=== PATIENT | male | born 1960 | race Caucasian/White ===

== ENCOUNTER 2020-09-10 07:02 | Outpatient (REF) | payer MEDICARE, MEDICAID, SELFPAY ==
[2020-09-10 08:36] LABS: Alanine Aminotransferase 40 U/L (0-40); Albumin Level 4.3 g/dL (3.5-5.0); Alkaline Phosphatase 71 U/L (39-117); Anion Gap 12 (12-20); Aspartate Amino Transferase 20 U/L (5-37); Bilirubin Total 0.6 mg/dL (0.0-1.0); Blood Urea Nitrogen 19 mg/dL (9-16); Calcium 9.2 mg/dL (8.4-10.2); Carbon Dioxide 25 mmol/L (22-29); Chloride 107 mmol/L (96-108); Cholesterol 217 mg/dL; Estimated Glomerular Filt Rate > 60; Glucose Fasting 108 mg/dL (60-99); HDL Cholesterol 38 mg/dL; LDL Cholesterol Calculated 150 mg/dl; Potassium 4.4 mmol/L (3.3-5.1); Sodium 140 mmol/L (135-145); Total Protein 6.6 g/dL (6.5-8.0); Triglycerides 146 mg/dL
== END 2020-09-10 07:03 | disposition home or self-care (01) ==
LOC: HO.LAB 07:02
PROVIDERS: PCP Internal Medicine; Visit Provider Internal Medicine
DX: E78.00 Pure hypercholesterolemia, unspecified (principal)
CPT/HCPCS: 36415; 80053; 80061

== ENCOUNTER 2021-03-02 08:09 | Outpatient (REF) | payer OTHER, SELFPAY ==
--- NOTE | ~2021-03-02 | XR_ITS ---
EXAMINATION: XR PELVIS CLINICAL INFORMATION: Hip pain. COMPARISON: Most recent pelvic radiograph dated 06/11/2019 TECHNIQUE: AP views of the pelvis. FINDINGS: Right hip arthroplasty. No acute hardware or osseous fracture. No perihardware lucency to suggest loosening or infection. Corticated ossification adjacent to the greater tuberosity. No lytic or blastic osseous lesion. XR/XR pelvis 1-2V IMPRESSION: No acute osseous abnormality. Right hip arthroplasty without evidence of complication.
== END 2021-03-02 08:10 | disposition home or self-care (01) ==
LOC: HO.HOSX 08:09
PROVIDERS: Visit Provider Orthopaedic Surgery
DX: M25.551 Pain in right hip (principal); M89.8X9 Other specified disorders of bone, unspecified site; Z96.641 Presence of right artificial hip joint
CPT/HCPCS: 72170; 99212

== ENCOUNTER 2021-05-26 07:09 | Outpatient (REF) | payer OTHER, SELFPAY ==
[2021-05-26 09:03] LABS: Alanine Aminotransferase 38 U/L (0-40); Albumin Level 4.5 g/dL (3.5-5.0); Alkaline Phosphatase 79 U/L (39-117); Anion Gap 7 (12-20); Aspartate Amino Transferase 22 U/L (5-37); Bilirubin Total 0.8 mg/dL (0.0-1.0); Blood Urea Nitrogen 17 mg/dL (9-16); Calcium 9.3 mg/dL (8.4-10.2); Carbon Dioxide 29 mmol/L (22-29); Chloride 108 mmol/L (96-108); Cholesterol 214 mg/dL; Estimated Glomerular Filt Rate > 60; Glucose Fasting 95 mg/dL (60-99); HDL Cholesterol 38 mg/dL; LDL Cholesterol Calculated 146 mg/dl; Potassium 4.3 mmol/L (3.3-5.1); Sodium 140 mmol/L (135-145); Total Protein 6.7 g/dL (6.5-8.0); Triglycerides 152 mg/dL
== END 2021-05-26 07:10 | disposition home or self-care (01) ==
LOC: HO.LAB 07:09
PROVIDERS: Absent Provider Nurse Practitioner Family; PCP Internal Medicine; Visit Provider Internal Medicine
DX: I10 Essential (primary) hypertension (principal); E78.5 Hyperlipidemia, unspecified
CPT/HCPCS: 36415; 80048; 80053; 80061

== ENCOUNTER 2021-06-29 14:39 | Outpatient (REF) | payer OTHER, SELFPAY | END 2021-06-29 14:40 | disposition home or self-care (01) | LOC: HO.LAB 14:39 | PROVIDERS: Visit Provider Internal Medicine | DX: Z20.822 Contact with and (suspected) exposure to COVID-19 (principal) | CPT/HCPCS: 36415; 87635; C9803; U0003; U0005 ==

== ENCOUNTER 2021-11-25 06:45 | Outpatient (REF) | payer OTHER, SELFPAY ==
[2021-11-25 08:19] LABS: Alanine Aminotransferase 40 U/L (0-40); Albumin Level 4.4 g/dL (3.5-5.0); Alkaline Phosphatase 75 U/L (39-117); Anion Gap 12 (12-20); Aspartate Amino Transferase 22 U/L (5-37); Bilirubin Total 0.4 mg/dL (0.0-1.0); Blood Urea Nitrogen 18 mg/dL (9-16); Calcium 9.7 mg/dL (8.4-10.2); Carbon Dioxide 26 mmol/L (22-29); Chloride 107 mmol/L (96-108); Cholesterol 220 mg/dL; Estimated Glomerular Filt Rate > 60; Glucose Fasting 99 mg/dL (60-99); HDL Cholesterol 38 mg/dL; LDL Cholesterol Calculated 142 mg/dl; Potassium 4.6 mmol/L (3.3-5.1); Sodium 140 mmol/L (135-145); Total Protein 6.9 g/dL (6.5-8.0); Triglycerides 200 mg/dL
== END 2021-11-25 06:46 | disposition home or self-care (01) ==
LOC: HO.LAB 06:45
PROVIDERS: PCP Internal Medicine; Visit Provider Internal Medicine
DX: E78.5 Hyperlipidemia, unspecified (principal); I10 Essential (primary) hypertension
CPT/HCPCS: 36415; 80053; 80061

== ENCOUNTER → 2022-02-16 09:14 | Outpatient (BNVA) | payer OTHER, SELFPAY | PROVIDERS: PCP Internal Medicine; Referring Provider Internal Medicine; Visit Provider Internal Medicine | DX: R07.9 Chest pain, unspecified (principal); I10 Essential (primary) hypertension; E78.5 Hyperlipidemia, unspecified | CPT/HCPCS: 93005; 99202 ==

== ENCOUNTER → 2022-04-15 08:29 | Outpatient (REF) | payer OTHER, SELFPAY ==
--- NOTE | 2022-04-15 08:35 | CA_ITS ---
Acquisition Time: 2022-04-15 09:25:33 Total Exercise Time: 00:07:04 Test Indications: Chest Pain Medications: LISINOPRIL ROSUVASTATIN Protocol: EVERETT Max HR: 141 BPM 88% of Pred: 160 BPM Max BP: 176/092 mmHG Max Work Load: 8.6 METS Exercise stress test with exercise 7 min 4 sec of [place], achieving 88% MPHR, without anginal symptoms, with isolated PACs, with normotensive response to exercise, without EKG changes meeting criteria for ischemia. Test reviewed with Dr Magaña. Referred By: Rob Machado Overread By: CHINYERE SCHUSTER
--- NOTE | 2022-04-15 08:35 | CA_ITS ---
Transthoracic Echocardiogram Patient (Last, First, Middle): Tucker San A Gender: Male Date of : 1960 Age: 61 Procedure Date: 04/15/2022 Procedure Type: Transthoracic Echocardiogram Location: OP Height: 167.64 cm Weight: 65.77 kg BSA: 1.74 m2 Heart Rate: 64 bpm BP: 120 / 70 mmHg Foundation Digger: PAYTON Adan MD: Rob Machado MD Foundation Digger: Jasvir Murphy MD Symptoms: R07.9 - Chest pain, unspecified Study Quality: Adequate ECG Rhythm: Sinus Conclusions: - 1. Normal LV systolic function with grade 1 diastolic dysfunction with possible basal inferolateral wall motion abnormality 2. Normal cardiac valvular Doppler 3. Normal RV systolic pressure 4. No gross pericardial effusion Findings Left Ventricle Normal left ventricular size, thickness, and systolic function. The visually estimated ejection fraction is between 60-65%. Spectral Doppler is indicative of an impaired relaxation filling pattern. E/E prime ratio is <8, consistent with normal filling pressures. Evidence suggests grade I (mild) diastolic dysfunction. Wall Motion Rest Echo Findings The basal inferolateral segment is hypokinetic. All other scored wall segments showed normal motion. Right Ventricle Normal right ventricular cavity size and systolic function. Atria Both atria are normal in size. There is no evidence of interatrial shunt. Aortic Valve Normal aortic valve structure and function. There is no aortic valve stenosis. There is no aortic valve regurgitation. Mitral Valve Normal mitral valve structure and function. There is trace mitral valve regurgitation. There is no mitral valve stenosis. Pulmonic Valve The pulmonic valve was not well visualized. Tricuspid Valve Normal tricuspid valve structure. There is trace tricuspid valve regurgitation. The right ventricular systolic pressure is normal. The right ventricular systolic pressure is 17 mmHg. Normal right atrial pressure. There is no evidence of pulmonary hypertension. Great Vessels All visible segments of the aorta are normal in size. The pulmonary artery was not well visualized. Venous The inferior vena cava is normal in size and collapses greater than 50% with inspiration. Pericardium/Pleural There is no evidence of pericardial effusion. Prior Study Comparison No prior study available for comparison. Measurements 2D Linear Measurements IVSd: 1.19 0.6-0.9/0.6-1.0 cm LVIDd: 4.23 3.9-5.3/4.2-5.9 cm LVIDd Index: 2.43 2.4-3.2/2.2-3.1 cm/m2 LVIDs: 3.14 2.0-3.6 cm LVPWd: 0.62 0.7-1.1 cm LA Diam: 3.00 2.7-3.8/3.0-4.0 cm LAIDs Index: 1.72 1.5-2.3 cm/m2 LV Mass: 150.11 67-162/88-224 g LV Mass Index: 86.27 43-95/49-115 g/m2 LVOT Diam: 1.90 3.0+(-)1.3 cm 2D Systolic Function EF 4C: 53.50 >55% EF 2C: 65.60 >55% EF BiP: 60.10 >55% Mitral Valve MV Pk E: 0.89 MV PK A: 0.85 MV Decel Time: 154.00 E/A: 1.00 E'Lateral: 10.90 E'Medial: 8.70 E/E' Med: 10.20 E/E' Lat: 8.10 PHT: 45.00 MVA PHT: 4.89 Decel Blackford: 5.78 Aortic Valve AoV Pk Reuben: 1.20 AoV Mn Reuben: 0.84 AoV VTI: 0.28 AoV Pk Grad: 6.00 Aov Mn Grad: 3.00 GRACIELA Cont.VTI: 1.85 LVOT LVOT Pk Reuben: 0.86 LVOT Mn Reuben: 0.58 LVOT VTI: 0.18 LVOT Pk Grad: 3.00 LVOT Mn Grad: 2.00 LVOT Diam: 1.90 LVOT Area: 2.84 Diastolic Function MV Pk E: 0.89 MV Pk A: 0.85 E/A: 1.00 E'Medial: 8.70 E/E' Med: 10.20 E' Laterial: 10.90 E/E' Lat: 8.10 Right Ventricle TAPSE (mm): 19.50 TVS' Reuben: 10.40 Tricuspid Valve TR Pk Reuben: 1.90 TR Pk Grad: 14.00 RA Press: 3.00 RVSP: 17.00 Great Vessels Aorta Sinus of Valsalva: 3.40 2.0-3.5 cm Ao Asc: 2.90 2.1-3.4 cm Pulmonary Valve PV Pk Reuben: 0.76 Peak PV Grad: 2.00 Updated in Other Vendor System with Status of Final Jasvir Murphy MD electronically signed on 04/16/2022 12:44:45 PM with status of Final
== END ==
LOC: HO.CARD 08:29
PROVIDERS: PCP Internal Medicine; Visit Provider Internal Medicine
DX: R07.9 Chest pain, unspecified (principal)
CPT/HCPCS: 93017; 93306

== ENCOUNTER 2022-04-23 07:50 | Outpatient (REF) | payer OTHER, SELFPAY ==
[2022-04-23 08:56] LABS: Alanine Aminotransferase 36 U/L (0-40); Albumin Level 4.5 g/dL (3.5-5.0); Alkaline Phosphatase 71 U/L (39-117); Anion Gap 13 (12-20); Aspartate Amino Transferase 21 U/L (5-37); Bilirubin Total 0.7 mg/dL (0.0-1.0); Blood Urea Nitrogen 19 mg/dL (9-16); Calcium 9.5 mg/dL (8.4-10.2); Carbon Dioxide 26 mmol/L (22-29); Chloride 106 mmol/L (96-108); Cholesterol 136 mg/dL; Estimated Glomerular Filt Rate > 60; Glucose Fasting 94 mg/dL (60-99); HDL Cholesterol 42 mg/dL; LDL Cholesterol Calculated 76 mg/dl; Potassium 4.7 mmol/L (3.3-5.1); Sodium 140 mmol/L (135-145); Total Protein 6.7 g/dL (6.5-8.0); Triglycerides 94 mg/dL
== END 2022-04-23 07:51 | disposition home or self-care (01) ==
LOC: HO.LAB 07:50
PROVIDERS: PCP Internal Medicine; Visit Provider Internal Medicine
DX: Z00.00 Encounter for general adult medical examination without abnormal findings (principal); E78.5 Hyperlipidemia, unspecified
CPT/HCPCS: 36415; 80053; 80061

== ENCOUNTER → 2022-05-10 07:45 | Outpatient (REF) | payer OTHER, SELFPAY ==
--- NOTE | ~2022-05-10 | NM_ITS ---
Exercise Myocardial perfusion study Indication: Abnormal echo to evaluate for myocardial ischemia Technique: The patient was brought in for an exercise perfusion study on 05/10/2022. Patient performed exercise as per Domenico protocol and was injected 25 mCi of sestamibi was given intravenously one target HR was achieved. Images were obtained using the SPECT gamma camera interlaced with the gating device. Images were obtained in supine position. Resting perfusion study was performed on 05/11/2022. Patient was administered 25 mCi of sestamibi intravenously at rest. Images were then obtained in supine position. Images obtained with and without CT attenuation. Total DLP 77 mGy-cm. Images were processed with the software and compared side to side in short axis, horizontal long axis and vertical long axis views. Findings: Both stress and rest perfusion study images are suboptimal due to intense subdiaphragmatic uptake interfering with inferior wall uptake. The stress perfusion study showed non attenuated images show mildly reduced uptake in the inferoseptal as well as the basal and mid inferior wall of the LV myocardium. Remainder of the LV myocardium is normally perfused. Attenuation corrected images show normal uptake of radiotracer in all segments of LV myocardium.. The gated study shows normal LV systolic function with calculated LVEF of 73%. LV cavity is normal in size. The gated study shows normal systolic wall thickening and contraction of all segments. There is no transient ischemic dilation. Resting study shows nontender images show no significant change in perfusion pattern compared to stress perfusion study. Attenuation corrected images are suboptimal due to intense subdiaphragmatic uptake causing diffusely reduced uptake in multiple segments. Gating at rest reveals normal systolic wall motion with visually estimated ejection fraction at greater than 70%. The findings are consistent with likely normal myocardial perfusion. NM/NM eric perf SPECT rest & str Impression: 1. Normal myocardial perfusion 2. Gated LVEF is greater than 70% 3. Transient ischemic dilatation not present Stress EKG is negative for ischemia
--- NOTE | 2022-05-10 07:56 | CA_ITS ---
Acquisition Time: 2022-05-10 08:04:23 Total Exercise Time: 00:07:15 Test Indications: ABN ECHO Medications: LISINOPRIL ROSUVASTATIN Protocol: EVERETT Max HR: 146 BPM 91% of Pred: 160 BPM Max BP: 162/088 mmHG Max Work Load: 8.9 METS Exercise stress test with exercise 7 min 15 sec achieving 91% MPHR, with mild sob, no chest discomfort, with isolated PACs, with normotensive response to exercise, without EKG changes meeting criteria for ischemia. Nuclear images pending. Test reviewed with Dr Murphy Referred By: Rob Machado Overread By: CHINYERE SCHUSTER
== END ==
LOC: HO.CARD 07:45
PROVIDERS: PCP Internal Medicine; Visit Provider Internal Medicine
DX: R07.2 Precordial pain (principal)
CPT/HCPCS: 78452; 93017; A9500

== ENCOUNTER → 2022-06-08 12:58 | Outpatient (BNVA) | payer OTHER, SELFPAY | PROVIDERS: PCP Internal Medicine; Referring Provider Internal Medicine; Visit Provider Nurse Practitioner Family | DX: R07.9 Chest pain, unspecified (principal); I10 Essential (primary) hypertension; R93.1 Abnormal findings on diagnostic imaging of heart and coronary circulation | CPT/HCPCS: 99212 ==

== ENCOUNTER → 2022-09-28 13:12 | Outpatient (BNVA) | payer OTHER, SELFPAY | PROVIDERS: PCP Internal Medicine; Referring Provider Internal Medicine; Visit Provider Nurse Practitioner Family | DX: R07.9 Chest pain, unspecified (principal); I10 Essential (primary) hypertension; R93.1 Abnormal findings on diagnostic imaging of heart and coronary circulation | CPT/HCPCS: 93005; 99212 ==

== ENCOUNTER 2022-10-13 08:04 | Day surgery (SDC) | payer OTHER, SELFPAY ==
--- NOTE | 2022-10-12 11:52 | HO.ANESPROP2 ---
Documented by User: Laura Farnsworth NP 10/12/22 11:53 HPI - Anesthesia Eval Consult details Narrative: 62yo M for Colonoscopy [facility] Active Problems Active Problems: All Active Problems (Updated 06/08/22 @ 13:14 by Connie Barton NP-C) Abnormal finding on echocardiogram (Acute) Constipation by delayed colonic transit (Acute) Chest pain (Acute) Physical exam (Acute) Hypertension (Acute) Heterotopic ossification of bone (Acute) History of right hip replacement (Acute) Hip pain (Acute) BPH (benign prostatic hyperplasia) (Acute) Impaired glucose tolerance (Acute) Dyslipidemia (Acute) Past Medical History Medical History (Updated 10/12/22 @ 11:53 by Laura Farnsworth NP) BPH (benign prostatic hyperplasia) Chest pain Dyslipidemia Guillain-[place] Hip pain HLD (hyperlipidemia) Hypertension Impaired glucose tolerance Physical exam Family History Family History Father Medical history unknown Skin cancer Prostate cancer Mother Diabetes Hypertension Maternal Grandmother Diabetes Hypertension CVD (cardiovascular disease) Maternal Grandfather Skin cancer Maternal Grandmother Breast cancer Daughter No problems noted. Brother No problems noted. Sister No problems noted. Surgical History Surgical History History of appendectomy History of cystoscopy History of hernia repair History of hip surgery History of laparoscopic cholecystectomy History of right hip replacement Social History Social History Housing: House Alcohol intake: former Patient Tobacco Use Status: Never used Tobacco e-Cigarette/Vaping Use: Never Used Second Hand Smoke Exposure: Yes Use of substances other than those prescribed or required for medical reasons: No Are you DNR?: No Advance Directives: No Advance Directives Information Provided: Yes service: No Current occupational status: retired Cognitive needs: No Hearing needs: No Vision needs: Yes Meds Allergies Allergy/AdvReac Type Severity Reaction Status Date / Time ezetimibe [From Zetia] Allergy Intermediate Abdominal Verified 09/28/22 13:18 pains nut - unspecified Allergy Intermediate Swelling Verified 09/28/22 13:18 oxycodone [From PERCOCET] Allergy Intermediate HYPOTENSION, Verified 09/28/22 13:18 N&V, UNCONSCIOUS Uorrven-VDX-UjR Reductase Allergy Intermediate Increases Verified 09/28/22 13:18 Inhibitor liver [Vtrzyny-Ble-Bit Reductase enzymes Inhibitor] Exam Exam Date and Time: October 12, 2022 1152 Pertinent Lab Results Pertinent Lab Results: Laboratory Tests 04/23/22 07:57 Sodium 140 Potassium 4.7 Chloride 106 Carbon Dioxide 26 BUN 19 H Creatinine 1.07 Assessment and Plan Assessment Anesthesia Assessment: Chart Reviewed Documented by User: Beverly Cobb MD 10/13/22 09:38 PMFSH Past Medical History Medical History (Updated 10/12/22 @ 11:53 by Laura Farnsworth NP) BPH (benign prostatic hyperplasia) Chest pain Dyslipidemia Guillain-[place] Hip pain HLD (hyperlipidemia) Hypertension Impaired glucose tolerance Physical exam Family History Family History Father Medical history unknown Skin cancer Prostate cancer Mother Diabetes Hypertension Maternal Grandmother Diabetes Hypertension CVD (cardiovascular disease) Maternal Grandfather Skin cancer Maternal Grandmother Breast cancer Daughter No problems noted. Brother No problems noted. Sister No problems noted. Family history of problems with anesthesia: No Surgical History Surgical History History of appendectomy History of cystoscopy History of hernia repair History of hip surgery History of laparoscopic cholecystectomy History of right hip replacement History of Problems with Anesthesia: No Social History Social History Housing: House Alcohol intake: former Patient Tobacco Use Status: Never used Tobacco e-Cigarette/Vaping Use: Never Used Second Hand Smoke Exposure: Yes Use of substances other than those prescribed or required for medical reasons: No Are you DNR?: No Advance Directives: No Advance Directives Information Provided: Yes service: No Current occupational status: retired Cognitive needs: No Hearing needs: No Vision needs: Yes Meds Allergies Allergy/AdvReac Type Severity Reaction Status Date / Time ezetimibe [From Zetia] Allergy Intermediate Abdominal Verified 09/28/22 13:18 pains nut - unspecified Allergy Intermediate Swelling Verified 09/28/22 13:18 oxycodone [From PERCOCET] Allergy Intermediate HYPOTENSION, Verified 09/28/22 13:18 N&V, UNCONSCIOUS Hnyvqfd-OJJ-VwP Reductase Allergy Intermediate Increases Verified 09/28/22 13:18 Inhibitor liver [Bilcyfv-Ore-Lvc Reductase enzymes Inhibitor] Exam Airway Mallampati Class: II TM Dist: >3cm Neck ROM: Full Heart: rr Lungs: cta Assessment and Plan Assessment Anesthesia Assessment: Anesthesia Plan Discussed Final Anesthetic Review Family History of Problems with Anesthesia: No History of Problems with Anesthesia: No NPO: Yes ASA Class: II Final Preanesthetic Review: No Changes in Pt Med Stat, Meds/Allgs Chart Reviewed, Consent Obtained/Reviewed and Anes Risks/Benef Reviewed Patient Risk: Low Procedure Risk: Low Anesthetic Plan Anesthetic Plan: MAC: Disposition: Standard PACU
--- OUTSIDE RECORDS SUMMARY | 2022-10-13 08:06 | XMS_ITS ---
Author Name Rj Landon Address [address] [place] [address] Organization [facility] Address [address] [place] [address] Care Team Providers Care Apple Peeler Operator Name Role Phone Rj Landon [facility] [phone] PROBLEMS Type Condition ICD9-CM Code [id number] Code Onset Dates Condition Status SNOMED Code Problem Colon cancer screening Z12.11 Active 236223116 Problem Constipation, unspecified constipation type K59.00 Active [id number] ALLERGIES Substance Reaction Event Type Date Status Percocet Unknown Drug Allergy Sep, Active ENCOUNTERS Encounter Location Date Diagnosis [facility] Outpatient [address] [place] [address] [id number] Sep, [facility] [address] [place] [id number] Aug, [facility] [address] [phone] Aug, Colon cancer screening Z12.11 and Constipation, unspecified constipation type K59.00 [facility] [address] [phone] Jun, IMMUNIZATIONS Vaccine Route Administration Date Status Influenza Unknown Mar 18, 2022 Administered SOCIAL HISTORY Qualifiers Date Never Smoker REASON FOR REFERRAL FUNCTIONAL STATUS PLAN OF CARE Activity Details VITAL SIGNS Weight 145 lbs 2022-09-07 Height 66 in 2022-09-07 BMI 23.40 kg/m2 2022-09-07 Temperature 97.7 degrees Fahrenheit Blood pressure systolic 000 mm Hg Blood pressure diastolic 00 mm Hg 2022-08 MEDICATIONS Medication Instructions Dosage Frequency Start Date End Date Duration Status Dulcolax (colon prep) 5 MG Orally two tablets twice a day for one day take at 3:00 p.m and 7:00p.m. Aug, 1 day Active Metamucil 0.36 GM orally Once or twice a day for constipation 2 with at least 8 ounces of water Aug, 30 days Active Rosuvastatin Calcium 20 MG 90 Active MiraLax 17 GM Orally Once or twice a day for constipation 1 packet mixed with 8 ounces of fluid Aug, 30 day(s) Active Motrin Active Lisinopril 5 MG 90 Active MiraLax (colon prep) 17 GM/SCOOP Orally begin at 5:00 p.m. the day before the procedure 1 238 Gm bottle mixed with Gatorade or Crystal Light Aug, 1 day Active PROCEDURES Procedure Date Ordered Result Body Site BP SCR NOT PRFRM REC REASON NOS Sep 07, 2022 TOBACCO NON-USER Sep 07, 2022 DOC MEDS VERIFIED W/PT OR RE Sep 07, 2022 COLORECTAL CA SCREEN DOC REV Sep 07, 2022 RESULTS No Results REASON FOR VISIT screening, Patiient presents today for a screening colonoscopy, patient presents today for screening colonoscopy, screening colonoscopy, Patient presents today for a COLON SCREENING, New Pt no show, PATIENT PRESENTS TODAY FOR ELEVATED LFT'S Insurance Providers Health Insurance Type Health Plan Insurance Address Health Plan Insurance Phone Health Plan Insurance Name Health Plan Coverage Dates Member ID Patient Relationship to Subscriber Patient Address Patient Phone Patient Name Patient Date of Subscriber ID Subscriber Name Subscriber Date of Group No [employer] [address] [facility] [address] [employer] self YESSICA DAN 2011 [id number] [place] [address] [facility] [address] [place] josh YESSICA DAN [id number] [place] [address] [facility] [address] MEDICAID OF [facility] self YESSICA DAN [id number] MEDICARE OF [facility] [address] [facility] [address] [place] YESSICA DAN [id number]
[2022-10-13 08:25] VITALS: BP 135/97; PULSE 81; RESP 16; TEMP 36.1; O2SAT 100; BMI 23.3
[2022-10-13] MEDS: Lactated Ringers 1,000 ML 100 ML IVCONT (08:53)
--- NOTE | 2022-10-13 09:59 | P.BOP_ITS ---
Brief Operative Note Date of Service: 10/13/22 Pre-op diagnosis: Screening Post-op diagnosis: other (Diverticulosis) Procedure: Colonoscopy to the cecum and TI Surgeon: Rj Landon Anesthesia: MAC Was an Lockstitch Lining Maker used for this Procedure?: No Estimated blood loss (mL): 0 Pathology: none sent Condition: stable Disposition: PACU
[2022-10-13 10:00] VITALS: BP 95/56; PULSE 63; RESP 16; TEMP 36.2; O2SAT 100
[2022-10-13 10:15] VITALS: BP 116/77; PULSE 59; RESP 16; TEMP 36.8; O2SAT 100
--- NOTE | 2022-10-13 11:36 | OP_ITS ---
DATE OF SERVICE: 10/13/2022 SURGEON: Rj Landon MD INDICATIONS: The patient presents for evaluation of colorectal cancer screening. Full consent has been obtained from him for this, including risks of bleeding and perforation. PREOPERATIVE DIAGNOSIS: Colorectal cancer screening. POSTOPERATIVE DIAGNOSIS: PROCEDURE PERFORMED: Colonoscopy to the cecum and terminal ileum. ESTIMATED BLOOD LOSS: COMPLICATIONS: ANESTHESIA: Monitored anesthesia care. ASSISTANTS: SPECIMENS: POSTOPERATIVE DIAGNOSES: Colorectal cancer screening, diverticulosis, and internal hemorrhoids. DESCRIPTION OF PROCEDURE: The patient was placed in the left lateral decubitus position. The digital rectal exam revealed no abnormalities. The Olympus video pediatric colonoscope was entered into the rectum and advanced easily to the cecum. Once in the cecum, I did identify a normal-appearing cecal pouch with appendiceal orifice and a normal-appearing ileocecal valve. The terminal ileum was cannulated and appeared normal. The scope was withdrawn back in the colon. The entire cecum and ileocecal valve appeared normal. The scope was then slowly withdrawn assessing all mucosal surface carefully. Preparation was excellent. I did not visualize any sign of polyps, colitis, nor angiodysplasia. There was a mild amount of sigmoid diverticulosis. In the rectum, scope was retroflexed visualizing internal hemorrhoids but no other pathology. The rectal mucosa appeared normal. Scope was straightened and withdrawn from the patient. He tolerated the procedure well and was returned to the recovery area in stable condition. IMPRESSION: 1. Diverticulosis. 2. Internal hemorrhoids. PLAN: Given today's negative exam, I would recommend a followup colonoscopy in 10 years for further screening. He will otherwise see me on a p.r.n. basis. This has been discussed with his . MD JAYLEEN Mcnair/MARINEL / [id number]
== END 2022-10-13 10:38 | disposition home or self-care (01) ==
PROVIDERS: PCP Internal Medicine; Visit Provider Internal Medicine
PROC: 0DJD8ZZ Inspection of Lower Intestinal Tract, Via Natural or Artificial Opening Endoscopic (ICD-10-PCS; CPT 45378; principal; 2022-10-13 09:20)
DX: Z12.11 Encounter for screening for malignant neoplasm of colon (principal); K57.30 Diverticulosis of large intestine without perforation or abscess without bleeding; K64.8 Other hemorrhoids; K59.00 Constipation, unspecified; I10 Essential (primary) hypertension; E78.00 Pure hypercholesterolemia, unspecified; G61.0 Guillain-Barre syndrome; Z79.1 Long term (current) use of non-steroidal anti-inflammatories (NSAID); Z79.899 Other long term (current) drug therapy; Z88.8 Allergy status to other drugs, medicaments and biological substances; Z90.49 Acquired absence of other specified parts of digestive tract
CPT/HCPCS: G0121

== ENCOUNTER 2022-11-12 10:07 | Outpatient (REF) | payer OTHER, SELFPAY ==
--- NOTE | ~2022-11-12 | XR_ITS ---
EXAMINATION: Pelvis and right hip x-ray CLINICAL INFORMATION: Pain COMPARISON: Previous x-ray February 2021 TECHNIQUE: AP view of the pelvis and shoot through lateral view of the right hip FINDINGS: There is a right hip replacement in satisfactory position. No fracture, dislocation or x-ray evidence of loosening. Heterotopic ossification adjacent to the right greater trochanter. The left hip is normal. Bones of the pelvis are normal. XR/XR pelvis 1-2V IMPRESSION: Satisfactory appearance of right hip replacement.
--- NOTE | ~2022-11-12 | XR_ITS ---
EXAMINATION: Pelvis and right hip x-ray CLINICAL INFORMATION: Pain COMPARISON: Previous x-ray February 2021 TECHNIQUE: AP view of the pelvis and shoot through lateral view of the right hip FINDINGS: There is a right hip replacement in satisfactory position. No fracture, dislocation or x-ray evidence of loosening. Heterotopic ossification adjacent to the right greater trochanter. The left hip is normal. Bones of the pelvis are normal. XR/XR hip RT 1V IMPRESSION: Satisfactory appearance of right hip replacement.
== END 2022-11-12 10:08 | disposition home or self-care (01) ==
LOC: HO.HOSX 10:07
PROVIDERS: Visit Provider Orthopaedic Surgery
DX: M24.051 Loose body in right hip (principal); Z96.641 Presence of right artificial hip joint
CPT/HCPCS: 72170; 73501; 73502; 99212

== ENCOUNTER 2022-12-14 13:20 | Outpatient (REF) | payer OTHER, SELFPAY ==
[2022-12-14 13:56] LABS: INTERNATIONAL NORM RATIO 1.1 (0.9-1.1); Prothrombin Time 12.2 SEC (10.0-13.1)
[2022-12-14 14:06] LABS: Hematocrit 42.4 % (42.0-52.0); Hemoglobin 14.5 g/dl (14.0-18.0); Mean Corpuscular HGB Conc 34.2 g/dl (31.0-36.0); Mean Corpuscular Hemoglobin 28.8 pg (27.0-33.0); Mean Corpuscular Volume 84.3 fL (80.0-98.0); Mean Platelet Volume 10.1 fL (9.4-12.4); Platelet Count 221 X10*3/uL (160-400); Red Blood Count 5.03 X10*6/uL (4.60-5.80); Red Cell Distribution Width 13.8 % (11.0-16.0); White Blood Count 6.4 X10*3/uL (4.8-10.8)
[2022-12-14 14:35] LABS: Alanine Aminotransferase 50 U/L (0-40); Albumin Level 4.1 g/dL (3.5-5.0); Alkaline Phosphatase 61 U/L (39-117); Anion Gap 10 (12-20); Aspartate Amino Transferase 23 U/L (5-37); Bilirubin Total 0.6 mg/dL (0.0-1.0); Blood Urea Nitrogen 19 mg/dL (9-16); Calcium 9.4 mg/dL (8.4-10.2); Carbon Dioxide 29 mmol/L (22-29); Chloride 105 mmol/L (96-108); Estimated Glomerular Filt Rate > 60; Glucose Random 80 mg/dL (60-115); Potassium 4.5 mmol/L (3.3-5.1); Sodium 139 mmol/L (135-145); Total Protein 6.4 g/dL (6.5-8.0)
[2022-12-14 14:53] LABS: TSH reflex Free T4 1.43 uIU/mL (0.32-4.0)
== END 2022-12-14 13:21 | disposition home or self-care (01) ==
LOC: HO.LAB 13:20
PROVIDERS: PCP Internal Medicine; Visit Provider Nurse Practitioner Family
DX: Z01.818 Encounter for other preprocedural examination (principal)
CPT/HCPCS: 36415; 80053; 84443; 85027; 85610

== ENCOUNTER → 2022-12-16 13:47 | Outpatient (BNVA) | payer OTHER, SELFPAY | PROVIDERS: PCP Internal Medicine; Visit Provider Orthopaedic Surgery | DX: Z01.810 Encounter for preprocedural cardiovascular examination (principal); I10 Essential (primary) hypertension; R07.9 Chest pain, unspecified; R93.1 Abnormal findings on diagnostic imaging of heart and coronary circulation | CPT/HCPCS: 93005; 99212 ==

== ENCOUNTER 2022-12-22 09:15 | Day surgery (SDC) | payer OTHER, SELFPAY ==
[2022-12-20 08:12] VITALS: BMI 23.7
--- NOTE | 2022-12-21 09:39 | P.CONAN_ITS ---
Documented by User: Laura Farnsworth NP 12/21/22 09:41 HPI - Anesthesia Eval Consult details Narrative: 62yo M for Right hip removal of Loose Body Cardiac cleared PCP cleared PMFSH Active Problems Active Problems: All Active Problems (Updated 12/16/22 @ 16:49 by Connie Barton, MANAGER MOBILITY-C) Preop cardiovascular exam (Acute) Loose body in right hip (Acute) Abnormal finding on echocardiogram (Acute) Constipation by delayed colonic transit (Acute) Chest pain (Acute) Physical exam (Acute) Heterotopic ossification of bone (Acute) History of right hip replacement (Acute) Hip pain (Acute) BPH (benign prostatic hyperplasia) (Acute) Impaired glucose tolerance (Acute) Dyslipidemia (Acute) Past Medical History Medical History BPH (benign prostatic hyperplasia) Chest pain Dyslipidemia Guillain-[place] Hip pain HLD (hyperlipidemia) Hypertension Impaired glucose tolerance Physical exam Family History Family History Father Medical history unknown Skin cancer Prostate cancer Mother Diabetes Hypertension Maternal Grandmother Diabetes Hypertension CVD (cardiovascular disease) Maternal Grandfather Skin cancer Maternal Grandmother Breast cancer Daughter No problems noted. Brother No problems noted. Sister No problems noted. Family history of problems with anesthesia: No Surgical History Surgical History History of appendectomy History of cystoscopy History of hernia repair History of hip surgery History of laparoscopic cholecystectomy History of right hip replacement History of Problems with Anesthesia: No Social History Social History Housing: House Alcohol intake: former Patient Tobacco Use Status: Never used Tobacco e-Cigarette/Vaping Use: Never Used Second Hand Smoke Exposure: Yes Advance Directives: No Advance Directives Information Provided: Yes service: No Current occupational status: retired Current occupational exposures/hazards: No Cognitive needs: No Hearing needs: No Vision needs: Yes (glasses) Meds Allergies Allergy/AdvReac Type Severity Reaction Status Date / Time ezetimibe [From Zetia] Allergy Intermediate Abdominal Verified 12/16/22 14:56 pains nut - unspecified Allergy Intermediate Swelling Verified 12/16/22 14:56 oxycodone [From PERCOCET] Allergy Intermediate HYPOTENSION, Verified 12/16/22 14:56 N&V, UNCONSCIOUS Jesclog-JWZ-NjN Reductase Allergy Intermediate Increases Verified 12/16/22 14:56 Inhibitor liver [Yqhhtpt-Pjg-Dap Reductase enzymes Inhibitor] Exam Exam Date and Time: December 21, 2022 0939 Height,Weight and Vital Signs: Height 5 ft 6 in Weight 66.678 kg Pertinent Lab Results Pertinent Lab Results: Laboratory Tests 12/14/22 12/14/22 13:31 13:31 WBC 6.4 Hgb 14.5 Hct 42.4 Plt Count 221 Sodium 139 Potassium 4.5 Chloride 105 Carbon Dioxide 29 BUN 19 H Creatinine 1.05 Narrative Narrative: EKG 12/2022 Sinus bradycardia, rate 50, QT 359 ms, no acute ST/ T wave abn. ECHO 03/2022 Conclusions: - 1.? Normal LV systolic function with grade 1 diastolic ? dysfunction with possible basal inferolateral wall motion? abnormality? 2.? Normal cardiac valvular Doppler? 3.? Normal RV systolic pressure? 4.? No gross pericardial effusion? NM eric perf SPECT rest & str 04/2022 Impression: ? 1.? Normal myocardial perfusion 2.? Gated LVEF is greater than 70% 3. Transient ischemic dilatation not present ? Stress EKG is negative for ischemia Assessment and Plan Assessment Anesthesia Assessment: Chart Reviewed Final Anesthetic Review Family History of Problems with Anesthesia: No History of Problems with Anesthesia: No Documented by User: Sophia Decker MD 12/22/22 11:41 HPI - Anesthesia Eval Consult details Narrative: 62yo M for Right hip removal of Loose Body Cardiac cleared PCP cleared no resp invfrom GBS PMFSH Past Medical History Medical History BPH (benign prostatic hyperplasia) Chest pain Dyslipidemia Guillain-[place] Hip pain HLD (hyperlipidemia) Hypertension Impaired glucose tolerance Physical exam Family History Family History Father Medical history unknown Skin cancer Prostate cancer Mother Diabetes Hypertension Maternal Grandmother Diabetes Hypertension CVD (cardiovascular disease) Maternal Grandfather Skin cancer Maternal Grandmother Breast cancer Daughter No problems noted. Brother No problems noted. Sister No problems noted. Surgical History Surgical History History of appendectomy History of cystoscopy History of hernia repair History of hip surgery History of laparoscopic cholecystectomy History of right hip replacement Social History Social History Housing: House Alcohol intake: former Patient Tobacco Use Status: Never used Tobacco e-Cigarette/Vaping Use: Never Used Second Hand Smoke Exposure: Yes Advance Directives: No Advance Directives Information Provided: Yes service: No Current occupational status: retired Current occupational exposures/hazards: No Cognitive needs: No Hearing needs: No Vision needs: Yes (glasses) Meds Allergies Allergy/AdvReac Type Severity Reaction Status Date / Time ezetimibe [From Zetia] Allergy Intermediate Abdominal Verified 12/16/22 14:56 pains nut - unspecified Allergy Intermediate Swelling Verified 12/16/22 14:56 oxycodone [From PERCOCET] Allergy Intermediate HYPOTENSION, Verified 12/16/22 14:56 N&V, UNCONSCIOUS Hejfjvn-RXH-PuE Reductase Allergy Intermediate Increases Verified 12/16/22 14:56 Inhibitor liver [Kyvizlv-Wcq-Zdv Reductase enzymes Inhibitor] Exam Airway Mallampati Class: II TM Dist: >3cm Neck ROM: Full Heart: rrr Lungs: cta Assessment and Plan Assessment Anesthesia Assessment: Anesthesia Plan Discussed Final Anesthetic Review NPO: Yes ASA Class: III Final Preanesthetic Review: No Changes in Pt Med Stat, Meds/Allgs Chart Reviewed, Consent Obtained/Reviewed and Anes Risks/Benef Reviewed Procedure Risk: Intermediate Anesthetic Plan Anesthetic Plan: GA Disposition: Standard PACU
[2022-12-22] VITALS (13 sets, daily range): BP systolic 119–149; BP diastolic 64–92; PULSE 53–69; RESP 16–18; TEMP 36–36.2; O2SAT 98–100
--- OUTSIDE RECORDS SUMMARY | 2022-12-22 09:17 | XMS_ITS ---
Author Name Rj Landon Address [address] [place] [address] Organization [facility] Address [address] [place] [address] Care Team Providers Care Skirt Clipper Name Role Phone Rj Landon [facility] [phone] PROBLEMS Type Condition ICD9-CM Code [id number] Code Onset Dates Condition Status SNOMED Code Problem Constipation, unspecified constipation type K59.00 Active 54223677 Problem Diverticulosis of large intestine without perforation or abscess without bleeding K57.30 Active 469990892 Problem Colon cancer screening Z12.11 Active 920816841 ALLERGIES Substance Reaction Event Type Date Status Percocet Unknown Drug Allergy Sep, Active ENCOUNTERS Encounter Location Date Diagnosis [facility] Outpatient [address] [place] [id number] Sep, Encounter for screening colonoscopy Z12.11 ; Diverticulosis of large intestine without perforation or abscess without bleeding K57.30 and Other hemorrhoids K64.8 [facility] [address] [place] [phone] Aug, [facility] [address] [place] [phone] Aug, Colon cancer screening Z12.11 and Constipation, unspecified constipation type K59.00 [facility] [address] [facility] [address] [place] [phone] Jun, IMMUNIZATIONS Vaccine Route Administration Date Status [...] CA SCREEN DOC REV Sep 07, 2022 DIAGNOSTIC COLONOSCOPY October 13, 2022 RESULTS No Results REASON FOR VISIT [...] Subscriber Name Subscriber Date of Group No [place]ICA[place] [facility] [address] [facility] [address] [facility] [facility] [place] [facility] YESSICA DAN [id number] [place] [address] [facility] [address] [place] self YESSICA DAN [id number] [employer] [address] [facility] [address] [employer] self YESSICA DAN [id number] [place] [address] [facility] [address] [id number] [place] self YESSICA DAN [id number]
[2022-12-22] MEDS: Lactated Ringers 1,000 ML 100 ML IVCONT (09:50)
--- NOTE | 2022-12-22 12:48 | P.BOP_ITS ---
Brief Operative Note Date of Service: 12/22/22 Pre-op diagnosis: painful clicking right hip Post-op diagnosis: same Procedure: Removal of loose body right hip, deep Implants: none Surgeon: Jose Alejandro Maya MD Anesthesia: GETA and local Was an Breeder Service Technician used for this Procedure?: Yes Breeder Service Technician: Rosalinda Hodge Estimated blood loss (mL): 50 IV fluids (mL): 800 Pathology: none sent Condition: stable Disposition: PACU
--- NOTE | 2022-12-22 13:08 | W.PM.OPN ---
Operative Note Operative Note Date of Service: 12/22/22 Narrative: Date of Service: 12/22/22 Pre-op diagnosis: painful clicking right hip Post-op diagnosis: same Procedure: Removal of loose body right hip, deep Implants: none Surgeon: Jose Alejnadro Maya MD Anesthesia: GETA and local Was an Pit Furnace Melter used for this Procedure?: Yes Pit Furnace Melter: Rosalinda Hodge Estimated blood loss (mL): 50 IV fluids (mL): 800 Pathology: none sent Condition: stable Disposition: PACU Procedure in detail: Patient was brought to the operating room and placed in the left lateral decubitus position on the surgical table. He was prepped and draped in standard sterile fashion and a time out was called to identify proper site, proper procedure and IV antibiotics per weight were administered. I began by making a incision through the prior total hip incision using the proximal half of the incision. Dissection was taken down with full-thickness flaps to the tensor fascia. This was incised in line with the incision and the gluteus was spread manually and a Charnley retractor was placed. I internally rotated the hip about 20 degrees and mostlythrough manual palpation was able to palpate a loose piece of bone deep to the gluteus medius tendon. This corresponded to the bone seen on plain radiographs. I palpated the abductor tendon and this did not appear to be adherent to the loose piece of bone so I carefully dissected out this bone t with a combination of periosteal elevation, sharp and blunt dissection and was able to remove a piece of bone approximately 2 cm x 1 cm in total dimension. It was located deep to the abductor tendon at the level of the greater trochanter tip. Once I had removed this bone completely I again reassessed the abductor tendon and it was unaffected although in close proximity. In addition there was no penetration of the joint. I irrigated copiously and then closed the tensor with a running Quill and skin with subcutaneous 0 then 2-0 then yelitza. Local anesthetic was injected and patient was placed in sterile dressing and extubated and brought to the recovery room stable condition. There were no known complications. Patient will be weight-bearing as tolerated but I suspect he will require the use of an assistive device temporarily.
[2022-12-22] MEDS: HYDROmorphone HCl 0.5 MG/0.5 ML SYRINGE 0.25 MG IVPUSH ×3 (13:55→14:21)
[2022-12-22] MEDS: oxyCODONE HCl Immed Release 5 MG TABLET PO (13:55)
== END 2022-12-22 15:50 | disposition home or self-care (01) ==
LOC: HO.SSS 09:15
PROVIDERS: PCP Internal Medicine; Visit Provider Orthopaedic Surgery
PROC: (CPT 27033; principal; 2022-12-22 10:30)
DX: M24.051 Loose body in right hip (principal); M25.551 Pain in right hip; Z96.641 Presence of right artificial hip joint; I10 Essential (primary) hypertension; E78.5 Hyperlipidemia, unspecified; R73.02 Impaired glucose tolerance (oral); G61.0 Guillain-Barre syndrome; Z88.8 Allergy status to other drugs, medicaments and biological substances
CPT/HCPCS: 27033; J0131; J0690; J1100; J1170; J1885; J2405; J2795; J3010

== ENCOUNTER 2022-12-27 12:52 | Outpatient (REF) | payer OTHER, SELFPAY ==
--- NOTE | ~2022-12-27 | XR_ITS ---
EXAMINATION: XR pelvis 1-2V, XR KUB CLINICAL INFORMATION: Reason for Exam M25.559 - Pain in unspecified hip COMPARISON: None. TECHNIQUE: Single AP view the pelvis obtained on 12/27/2022. AP view of the abdomen obtained on 12/30/2022 FINDINGS: No bowel obstruction. Stool present within the ascending colon and left colon. No acute osseous abnormalities. Right total hip arthroplasty. Skin yelitza present laterally. No evidence of hardware failure or complication. No acute osseous abnormalities. XR/XR pelvis 1-2V IMPRESSION: * Mild constipation. * No evidence of hardware failure or complication with respect to the right total hip arthroplasty.
== END 2022-12-27 12:53 | disposition home or self-care (01) ==
LOC: HO.HOSX 12:52
PROVIDERS: PCP Internal Medicine; Visit Provider Physician Assistant
DX: M25.551 Pain in right hip (principal)
CPT/HCPCS: 72170; 99212

== ENCOUNTER 2022-12-29 21:54 | Emergency (ER) | payer OTHER, SELFPAY ==
--- NOTE | ~2022-12-29 | XR_ITS ---
EXAMINATION: XR pelvis 1-2V, XR KUB CLINICAL INFORMATION: Reason for Exam M25.559 - Pain in unspecified hip COMPARISON: None. TECHNIQUE: Single AP view the pelvis obtained on 12/27/2022. AP view of the abdomen obtained on 12/30/2022 FINDINGS: No bowel obstruction. Stool present within the ascending colon and left colon. No acute osseous abnormalities. Right total hip arthroplasty. Skin yelitza present laterally. No evidence of hardware failure or complication. No acute osseous abnormalities. XR/XR KUB IMPRESSION: * Mild constipation. * No evidence of hardware failure or complication with respect to the right total hip arthroplasty.
[2022-12-29 22:09] VITALS: BP 138/93; PULSE 111; RESP 20; TEMP 36.2; O2SAT 100; BMI 23.6
[2022-12-30] VITALS: BP 146/82; PULSE 90; RESP 18; TEMP 37.1; O2SAT 99
--- OUTSIDE RECORDS SUMMARY | 2022-12-30 00:25 | XMS_ITS ---
Author Name Rj Landon Address [address] [place] [address] Organization [facility] Address [address] [place] [address] Care Team Providers Care Binder Chainstitch Name Role Phone Rj Landon [facility] [phone] PROBLEMS Type Condition ICD9-CM Code [id number] Code Onset Dates Condition Status SNOMED Code Problem Constipation, unspecified constipation type K59.00 Active 66014863 Problem Diverticulosis of large intestine without perforation or abscess without bleeding K57.30 Active 251673680 Problem Colon cancer screening Z12.11 Active 917990548 ALLERGIES Substance Reaction Event Type Date Status Percocet Unknown Drug Allergy Sep, Active ENCOUNTERS Encounter Location Date Diagnosis [facility] Out[facility] [address] [place] [id number] Sep, Encounter for screening colonoscopy Z12.11 ; Diverticulosis of large intestine without perforation or abscess without bleeding K57.30 and Other hemorrhoids K64.8 [facility] [address] [place] [phone] Aug, [facility] [address] [place] [phone] Aug, Colon cancer screening Z12.11 and Constipation, unspecified constipation type K59.00 [facility] [address] [facility] [address] [place] [phone] Jun, IMMUNIZATIONS Vaccine Route Administration Date Status [...] Subscriber Name Subscriber Date of Group No [place] [address] [facility] [phone] [place] josh YESSICA DAN [id number] [place] [address] [facility] [address] [place]IC[place] self YESSICA DAN [id number] [place] [address] [facility] [address] [place] YESSICA DAN [id number] [employer] [address] [facility] [address] [employer] self YESSICA DAN [id number]
--- NOTE | 2022-12-30 01:19 | ED_ITS ---
HPI - Abdominal Pain General Chief Complaint: Abdominal Pain Stated Complaint: Abd pain, stool problem? Time Seen by Provider: 12/30/22 01:17 Source: patient Mode of arrival: EMS Limitations: no limitations History of Present Illness HPI narrative: Patient is status post right hip replacement 12/22/2022 with history of constipation been constipated for last 11 days unable to move bowels took stools after only today. No nausea no vomiting feels bloated patient also saying it has not urinated much since yesterday afternoon Related Data Previous Rx's Medication Instructions Recorded docusate sodium 100 mg capsule 100 mg PO BID PRN constipation 90 04/28/22 (Colace) days #180 caps rosuvastatin 20 mg tablet 20 mg PO BEDTIME 90 days #90 tabs 12/02/22 lisinopril 5 mg tablet 5 mg PO DAILY 90 days #90 tabs 12/09/22 acetaminophen 300 mg-codeine 60 mg 1 tab PO Q8H PRN pain #28 tabs 12/23/22 tablet polyethylene glycol 3350 17 17 g PO DAILY #510 grams 12/30/22 gram/dose oral powder (Miralax) Allergies Allergy/AdvReac Type Severity Reaction Status Date / Time ezetimibe [From Zetia] Allergy Intermediate Abdominal Verified 12/27/22 13:26 pains nut - unspecified Allergy Intermediate Swelling Verified 12/27/22 13:26 oxycodone [From PERCOCET] Allergy Intermediate HYPOTENSION, Verified 12/27/22 13:26 N&V, UNCONSCIOUS Aluqtmg-DHM-RvO Reductase Allergy Intermediate Increases Verified 12/27/22 13:26 Inhibitor liver [Treswyz-Svn-Ssl Reductase enzymes Inhibitor] Review of Systems Review of Systems Yes all other systems are reviewed and are negative [facility] Past Medical History Medical History BPH (benign prostatic hyperplasia) Chest pain Dyslipidemia Guillain-[place] Hip pain HLD (hyperlipidemia) Hypertension Impaired glucose tolerance Physical exam Surgical History History of appendectomy History of cystoscopy History of hernia repair History of hip surgery History of laparoscopic cholecystectomy History of right hip replacement Family History Family History Father Medical history unknown Skin cancer Prostate cancer Mother Diabetes Hypertension Maternal Grandmother Diabetes Hypertension CVD (cardiovascular disease) Maternal Grandfather Skin cancer Maternal Grandmother Breast cancer Daughter No problems noted. Brother No problems noted. Sister No problems noted. Social History Social History Housing: House Alcohol intake: never Patient Tobacco Use Status: Never used Tobacco Smoked in Last 30 Days: No e-Cigarette/Vaping Use: Never Used Second Hand Smoke Exposure: Yes Use of substances other than those prescribed or required for medical reasons: No Advance Directives: No Advance Directives Information Provided: Yes service: No Current occupational status: retired Current occupational exposures/hazards: No Cognitive needs: No Hearing needs: No Vision needs: Yes (glasses) Physical Exam ED Vital Signs: Vital Signs - 24 hr 12/29/22 22:09 12/30/22 00:00 12/30/22 02:00 Temperature 97.2 F 98.7 F 98.8 F Pulse Rate 111 H 90 86 Respiratory Rate 20 18 16 Blood Pressure 138/93 H 146/82 H 133/70 Pulse Oximetry 100 99 100 Oxygen Delivery Method Room Air Room Air Room Air BMI result Body Mass Index 23.6 Appearance: Alert. Oriented X3. No acute distress. Eyes: PERRLA, No Nystagmus ENT: Pharynx normal. Oral Mucosa moist Neck: Normal inspection. Neck supple. CVS: Normal heart rate and rhythm. Pulses normal. Respiratory: No respiratory distress. Equal air entry bilateral, no wheezing/rales/rhonchi Abdomen: Soft and nontender. Bowel sounds are present, no mass palpable, no CVA tenderness rectal; semi hard stool ++ Skin: Skin warm and dry. Normal skin color. Normal skin turgor. Extremities: No lower extremity edema. No calf tenderness right hip status post surgery Neuro: Oriented X 3. Medical Decision Making Medical Decision Making MDM Narrative: After manual disimpaction and Fleet enema patient had a good bowel movement and feeling much better labs are stable discharge patient home on MiraLax Lab Data [facility] Lab Attestation statement: I reviewed the patient's lab results. 12/30/22 02:39 12/30/22 02:39 Labs: Lab Results 12/30/22 12/30/22 12/30/22 Range/Units 02:39 02:39 02:39 WBC 9.5 (4.8-10.8) X10*3/uL RBC 4.94 (4.60-5.80) X10*6/uL Hgb 13.8 L (14.0-18.0) g/dl Hct 41.0 L (42.0-52.0) % MCV 83.0 (80.0-98.0) fL MCH 27.9 (27.0-33.0) pg MCHC 33.7 (31.0-36.0) g/dl RDW 13.2 (11.0-16.0) % Plt Count 222 (160-400) X10*3/uL MPV 9.2 L (9.4-12.4) fL Immature Gran % (Auto) 0.3 (0.0-0.4) % Neut % (Auto) 88.5 H (45-73) % Lymph % (Auto) 5.8 L (20-40) % [place] % (Auto) 5.3 (2-11) % Eos % (Auto) 0.0 (0-4) % Baso % (Auto) 0.1 (0-2) % Lymph # (Auto) 0.6 L (1.2-4.9) X10*3/uL [place] # (Auto) 0.5 (0.1-1.2) X10*3/uL Eos # (Auto) 0.0 (0.0-0.4) X10*3/uL Baso # (Auto) 0.0 (0.0-0.2) X10*3/uL Abs Immat Gran (auto) 0.03 (0.00-0.03) X10*3/uL Absolute Neuts (auto) 8.4 H (2.0-8.3) x10*3/uL Absolute Nucleated RBC 0.000 (0.0-0.012) X10*3/uL Nucleated RBC % (auto) 0.0 (0.0-0.2) /100WBC Sodium 140 (135-145) mmol/L Potassium 4.2 (3.3-5.1) mmol/L Chloride 104 (96-108) mmol/L Carbon Dioxide 24 (22-29) mmol/L Anion Gap 16 (12-20) BUN 17 H (9-16) mg/dL Creatinine 0.98 (0.5-1.4) mg/dL Estim Creat Clear Calc 71.4 Estimated GFR > 60 Random Glucose 129 H (60-115) mg/dL Calcium 9.5 (8.4-10.2) mg/dL Urine Color Yellow Urine Appearance Clear Urine pH 7.5 (5.0-9.0) Ur Specific [place] 1.020 (1.005-1.025) Urine Protein Trace (Neg-Trace) mg/dL Urine Glucose (UA) Negative (Negative) mg/dL Urine Ketones Trace (Negative) mg/dL Urine Blood Negative (Negative) Urine Nitrite Negative (Negative) Ur Leukocyte Esterase Trace H (Negative) Urine RBC 0-2 (0-2) /HPF Urine WBC 0-5 (0-5) /HPF Ur Squamous Epith Cells 0-2 (0-2) /HPF Urine Bacteria None Seen (None Seen) Hyaline Casts 0-2 (0-2) /LPF Medications Administered Discontinued Medications Generic Name Dose Route Start Last Admin Trade Name Sachinq PRN Reason Stop Dose Admin Bisacodyl 10 mg 12/30/22 02:09 12/30/22 02:46 Bisacodyl 5 Mg Tablet.Dr PO 12/30/22 02:10 10 mg ONCE ONE Administration Sodium Chloride 1,000 mls @ 999 mls/hr 12/30/22 02:08 12/30/22 02:46 Ns IV 12/30/22 03:08 999 mls/hr .Q1H1M ONE Administration Lidocaine HCl 10 ml 12/30/22 01:58 12/30/22 02:03 Lidocaine Hcl 2 % Urojet 10 Ml Jel.Pf.Aclvin TOPICAL 12/30/22 01:59 10 ml ONCE ONE Administration Magnesium Hydroxide 30 ml 12/30/22 02:09 12/30/22 02:46 Milk Of Magnesia 30 Ml Oral.Susp PO 12/30/22 02:10 30 ml ONCE ONE Administration Morphine Sulfate 4 mg 12/30/22 03:00 12/30/22 03:27 Morphine Sulfate 4 Mg/Ml Cartridge IVPUSH 12/30/22 03:01 4 mg ONCE ONE Administration Protocol Ondansetron HCl 4 mg 12/30/22 03:00 12/30/22 03:27 Ondansetron Hcl 4 Mg/2 Ml Vial IVPUSH 12/30/22 03:01 4 mg ONCE ONE Administration Sodium Biphosphate/Sodium Phosphate 133 ml 12/30/22 02:34 12/30/22 02:46 Sodium Phosphate,[place]-Dibasic 133 Ml Enema [place] 12/30/22 02:35 133 ml ONCE ONE Administration Discharge Plan Discharge Clinical Impression: Constipation Patient Disposition: Home, Self-Care Instructions: Constipation (ED) Additional Instructions: Take MiraLax and Colace daily for constipation Follow-up with PCP if any concerns [place] MiraLax y Colace diariamente para el estre?imiento Seguimiento con PCP si hay alguna inquietud Prescriptions: New polyethylene glycol 3350 [Miralax] 17 gram/dose powder 17 g PO DAILY Qty: 510 0RF No Action rosuvastatin 20 mg tablet 20 mg PO BEDTIME 90 Days Qty: 90 1RF lisinopril 5 mg tablet 5 mg PO DAILY 90 Days Qty: 90 1RF acetaminophen-codeine 300-60 mg tablet 1 tab PO Q8H PRN (Reason: pain) Qty: 28 0RF docusate sodium [Colace] 100 mg capsule 100 mg PO BID PRN (Reason: constipation) 90 Days Qty: 180 1RF Interventions: ED Discharge Assessment Last Done: 12/30/22 04:33 Discharge Date/Time: 12/30/22 04:33 Print Language: Kazakh
[2022-12-30 02:00] VITALS: BP 133/70; PULSE 86; RESP 16; TEMP 37.1; O2SAT 100
[2022-12-30] MEDS: Lidocaine HCl 2 % Urojet 10 ML JEL.PF.APP TOPICAL (02:03)
[2022-12-30 02:46] LABS: Basophils Percent Auto 0.1 % (0-2); Hemoglobin 13.8 g/dl (14.0-18.0); Imm Gran Abs Auto 0.03 X10*3/uL (0.00-0.03); Imm Gran Pct Auto 0.3 % (0.0-0.4); Lymphocytes Absolute Auto 0.6 X10*3/uL (1.2-4.9); Lymphocytes Percent Auto 5.8 % (20-40); MANUAL DIFF FLAG NO; Mean Corpuscular HGB Conc 33.7 g/dl (31.0-36.0); Mean Corpuscular Hemoglobin 27.9 pg (27.0-33.0); Mean Platelet Volume 9.2 fL (9.4-12.4); Monocytes Absolute Auto 0.5 X10*3/uL (0.1-1.2); Monocytes Percent Auto 5.3 % (2-11); Neutrophils Absolute Auto 8.4 x10*3/uL (2.0-8.3); Neutrophils Percent Auto 88.5 % (45-73); Platelet Count 222 X10*3/uL (160-400); Red Blood Count 4.94 X10*6/uL (4.60-5.80); Red Cell Distribution Width 13.2 % (11.0-16.0); White Blood Count 9.5 X10*3/uL (4.8-10.8)
[2022-12-30] MEDS: 0.9 % Sodium Chloride 1,000 ML 999 ML IV (02:46)
[2022-12-30] MEDS: Milk of Magnesia 30 ML ORAL.SUSP PO (02:46)
[2022-12-30] MEDS: Sodium Phosphate,Mono-Dibasic 133 ML ENEMA PR (02:46)
[2022-12-30] MEDS: bisacodyL 5 MG TABLET.DR 10 MG PO (02:46)
[2022-12-30 02:47] LABS: Appearance Urine Clear; Color Urine Yellow; Glucose Urine UA Negative (Negative); Leukocyte Esterase Urine Trace (Negative); Nitrite Urine Negative (Negative); PH 7.5 (5.0-9.0); UMIC TRIGGER UACC YES; Urine Blood Negative (Negative); Urine Ketones Trace mg/dL (Negative); Urine Protein Trace mg/dL (Neg-Trace)
[2022-12-30 02:53] LABS: Bacteria Urine None Seen (None Seen); Hyaline Casts Urine 0-2 /LPF (0-2); RBC Urine 0-2 /HPF (0-2); Squamous Epithelial Cell Urine 0-2 /HPF (0-2); WBC Urine 0-5 /HPF (0-5)
--- NOTE | 2022-12-30 02:54 | PC.NURSE ---
18g IV inserted into the left AC with fluids running. Line is patent and secure. Pt was given a saline enema with increased pain upon insertion. Pt medicated per MAR
[2022-12-30 03:00] LABS: Anion Gap 16 (12-20); Blood Urea Nitrogen 17 mg/dL (9-16); Calcium 9.5 mg/dL (8.4-10.2); Carbon Dioxide 24 mmol/L (22-29); Chloride 104 mmol/L (96-108); Creatinine Clr Calc Pharmacy 71.4; Estimated Glomerular Filt Rate > 60; Glucose Random 129 mg/dL (60-115); Potassium 4.2 mmol/L (3.3-5.1); Sodium 140 mmol/L (135-145)
[2022-12-30] MEDS: ondansetron HCL 4 MG/2 ML VIAL IVPUSH (03:27)
[2022-12-30] MEDS: Morphine Sulfate 4 MG/ML CARTRIDGE IVPUSH (03:27)
--- NOTE | 2022-12-30 03:43 | PC.NURSE ---
Pt had a bowel movement after the enema. Stated it was very compacted. Pt still reporting 8/10 pain. Morphine given per SEP.
== END 2022-12-30 04:33 | disposition home or self-care (01) ==
PROVIDERS: Emergency Provider Internal Medicine
DX: K59.00 Constipation, unspecified (principal); Z79.899 Other long term (current) drug therapy
CPT/HCPCS: 36415; 74018; 80048; 81001; 85025; 96374; 96375; 99284; 99285; J2270; J2405

== ENCOUNTER → 2023-01-03 14:00 | Outpatient (BNVA) | payer OTHER, SELFPAY | PROVIDERS: Visit Provider Physician Assistant | DX: Z47.89 Encounter for other orthopedic aftercare (principal); Z87.39 Personal history of other diseases of the musculoskeletal system and connective tissue | CPT/HCPCS: 99212 ==

== ENCOUNTER 2023-01-31 11:40 | Outpatient (REF) | payer OTHER, SELFPAY ==
--- NOTE | ~2023-01-31 | XR_ITS ---
EXAMINATION: XR PELVIS CLINICAL INFORMATION: Pain COMPARISON: 12/30/2022 TECHNIQUE: AP view of the pelvis. FINDINGS: Right hip arthroplasty changes appear intact. There is no evidence for hardware failure. Mild heterotopic ossification adjacent to the greater trochanter. Left hip normal. XR/XR pelvis 1-2V IMPRESSION: No evidence for hardware failure. No acute findings.
== END 2023-01-31 11:41 | disposition home or self-care (01) ==
LOC: HO.HOSX 11:40
PROVIDERS: Visit Provider Physician Assistant
DX: M24.051 Loose body in right hip (principal)
CPT/HCPCS: 72170

== ENCOUNTER 2023-01-31 12:44 | Outpatient (AMB) | payer OTHER, SELFPAY ==
--- NOTE | 2023-01-31 12:55 | A.OFFVIS_ITS ---
Intake Vital Signs 01/31/23 12:57 Height 5 ft 6 in Weight 146 lb BMI 23.6 Intake Visit Reasons: PO RT hip removal of loose body 12/22/22NE Intake Note: Tucker is a 62 year old male who presents today for a post operative right hip removal of loose body, 12/22/22 NE. Patient reports having some soreness and he states it is so much better than before. Allergies ezetimibe [From Zetia] Allergy (Intermediate, Verified 01/31/23 12:57) Abdominal pains nut - unspecified Allergy (Intermediate, Verified 01/31/23 12:57) Swelling oxycodone [From PERCOCET] Allergy (Intermediate, Verified 01/31/23 12:57) HYPOTENSION, N&V, UNCONSCIOUS Mqhnrex-MNJ-QjL Reductase Inhibitor [Svuvznt-Fwx-Flj Reductase Inhibitor] Aller gy (Intermediate, Verified 01/31/23 12:57) Increases liver enzymes HPI PO RT hip removal of loose body 12/22/22NE HPI Details 62-year-old male, who is Indian speaking, presents in the office today 5 weeks status post right hip deep removal of loose body, which was performed on 12/22/[address] Maya. He states he has some soreness from the surgery. He states he has no pain. He reports he is feeling better then before the surgery. [facility] Medical History BPH (benign prostatic hyperplasia) Chest pain Dyslipidemia Guillain-[place] Hip pain HLD (hyperlipidemia) Hypertension Impaired glucose tolerance Physical exam Surgical History History of appendectomy History of cystoscopy History of hernia repair History of hip surgery History of laparoscopic cholecystectomy History of right hip replacement Family History Father Medical history unknown Skin cancer Prostate cancer Mother Diabetes Hypertension Maternal Grandmother Diabetes Hypertension CVD (cardiovascular disease) Maternal Grandfather Skin cancer Maternal Grandmother Breast cancer Daughter No problems noted. Brother No problems noted. Sister No problems noted. Social History Housing: House Alcohol intake: never Patient Tobacco Use Status: Never used Tobacco e-Cigarette/Vaping Use: Never Used Second Hand Smoke Exposure: Yes service: No Current occupational status: retired Current occupational exposures/hazards: No Cognitive needs: No Hearing needs: No Vision needs: Yes (glasses) Review of Systems Const All systems reviewed & are unremarkable except as noted in HPI and below Physical Exam Vital Signs: BMI result Body Mass Index 23.6 Const General: cooperative and no acute distress Orientation/consciousness: patient oriented x3 Resp Effort & Inspection: normal respiratory effort and able to speak in complete sentences Cardio Peripheral pulses: Peripheral pulses 2+ throughout Neuro General: patient oriented x3 Extrem Other: Right hip: Incision site is completely healed. No ecchymosis, erythema, or edema. Full hip ROM in all planes. No tenderness to palpation over the greater trochanteric bursa. 5/5 strength with resisted hip flexion, knee extension, abduction, and abduction. Able to perform straight leg raise. NVI. Psych Mental Status: mental status grossly normal Assessment & Plan Assessment & Plan (1) Loose body in right hip: Comment: Right hip deep removal of loose body 12/22/2022 NE Code(s): M24.051 - Loose body in right hip Plan Mr. Ferrer is a 62-year-old male, who is Indian speaking, presents in the office today 5 weeks status post right hip deep removal of loose body, which was performed on 12/22/[address] Maya. He states he has some soreness from the surgery. He states he has no pain. He reports he is feeling better then before the surgery. The patient will return to normal activities as tolerated. Follow up will be PRN, or sooner if needed. Orders: Orders XR pelvis 1-2V 01/31/23 M25.559 - Pain in unspecified hip Patient Instructions: Scribed for Rosalinda Hodge PA-C by Rekha Chen medical asst, on 01/31/2023 at 12:53 pm, EST. Your attestation Coding Level of Care Code Global (66325) Diagnoses Loose body in right hip M24.051
[2023-01-31 12:57] VITALS: BMI 23.6
== END 2023-01-31 14:10 | disposition home or self-care (01) ==
PROVIDERS: Visit Provider Physician Assistant
DX: M24.051 Loose body in right hip (principal)
CPT/HCPCS: 99024

== ENCOUNTER 2023-04-07 07:43 | Outpatient (AMB) | payer OTHER, MEDICAID, SELFPAY ==
--- NOTE | 2023-04-07 07:47 | MHC.PC.OV ---
Vital Signs 04/07/23 07:55 Height 5 ft 6 in Weight 145 lb 6 oz BMI 23.5 BP 136/82 Blood Pressure Location Lt brachial Position Sitting Pulse 65 Pulse Source Pulse Oximeter Pulse Oximetry (%) 100 Oxygen Delivery Method Room Air Intake Visit Reasons: Annual PE Intake Note: Patient here for an annual physical exam Director Of Staff Development Required: No Accompanied by: Self / Same As Patient Allergies ezetimibe [From Zetia] Allergy (Intermediate, Verified 04/07/23 07:59) Abdominal pains nut - unspecified Allergy (Intermediate, Verified 04/07/23 07:59) Swelling oxycodone [From PERCOCET] Allergy (Intermediate, Verified 04/07/23 07:59) HYPOTENSION, N&V, UNCONSCIOUS Hbgtrgs-UJE-UnX Reductase Inhibitor [Iinmqiw-Chp-Hjx Reductase Inhibitor] Allergy (Intermediate, Verified 04/07/23 07:59) Increases liver enzymes Medication List - Last Reconciled 04/07/23 by Enedina Lorenz MD docusate sodium (Colace) 100 mg PO BID PRN 90 days lisinopril 5 mg PO DAILY 90 days polyethylene glycol 3350 (Miralax) 17 grams PO DAILY rosuvastatin 20 mg PO BEDTIME 90 days Tobacco use date assessed: 12/14/22 Dental Screening Dental Screen Date: 04/07/23 Did you have a dental visit in the last 12 months?: No Did you have a dental problem in the last 6 months where you did not have access to dental care?: No Was dental information given to patient?: Patient has dentist HPI HPI Comments History of Present Illness Details This is a 62-year-old male that comes for his physical exam. Last colonoscopy was November 2022 showing internal hemorrhoids and diverticulosis. No chest pain or shortness of breath. Has family history of colon cancer in paternal on-call at unknown age. No change in bowel or bladder habits. [facility] Medical History Guillain-[place] HLD (hyperlipidemia) Chest pain Physical exam Hypertension Hip pain BPH (benign prostatic hyperplasia) Impaired glucose tolerance Dyslipidemia Surgical History (Updated 04/07/23 @ 08:09 by Enedina Lorenz MD) H/O colonoscopy History of hernia repair History of right hip replacement History of cystoscopy History of hip surgery History of appendectomy History of laparoscopic cholecystectomy Family History Father Skin cancer Prostate cancer Mother Diabetes Hypertension Breast cancer Maternal Grandmother Diabetes Hypertension CVD (cardiovascular disease) Maternal Grandfather Skin cancer Maternal Grandmother Breast cancer Daughter No problems noted. Brother No problems noted. Sister No problems noted. Maternal Uncle Diabetes Pancreatic cancer Maternal Uncle Prostate cancer Paternal Uncle Colon cancer Paternal Uncle Prostate cancer Paternal Uncle Skin cancer Social History Housing: House Alcohol intake: never Patient Tobacco Use Status: Never used Tobacco e-Cigarette/Vaping Use: Never Used Second Hand Smoke Exposure: Yes service: No Current occupational status: retired Current occupational exposures/hazards: No Cognitive needs: No Hearing needs: No Vision needs: Yes (glasses) Questionnaire Thrive Questionnaire Date Thrive assessed: 12/14/22 REYNALDO-7 AMB Questionnaire REYNALDO-7 Date REYNALDO - 7 assessed: 12/14/22 Source: Developed by Drs. Rj Keen, Nubia Gallegos, Robert Reyna and colleagues, with an educational thuy from [employer]. Review of Systems Const All systems reviewed & are unremarkable except as noted in HPI and below Eyes Reports no additional complaints, Denies change in vision and Denies other visual disturbances Card Denies chest pain at rest, Denies chest pain with activity, Denies edema, Denies irregular heart rhythm, Denies claudication, Denies dyspnea, Denies dyspnea on exertion, Denies orthopnea, Denies paroxysmal nocturnal dyspnea and Denies slow heart rate Resp Denies cough, Denies dyspnea and Denies dyspnea on exertion GI Denies abdominal pain, Denies change in bowel habits, Denies excessive flatus, Denies nausea and Denies vomiting Denies urinary hesitancy, Denies urinary incontinence and Denies urinary urgency Musc Denies abnormal gait, Denies atrophy, Denies deformity and Denies limited range of motion Skin/Breast Denies bleeding lesions, Denies changing lesions and Denies rash Neuro Denies abnormal gait and Denies lack of coordination Physical exam (Primary Care) Vital Signs: Last Vital Signs Pulse 65 04/07/23 07:55 BP 136/82 04/07/23 07:55 Pulse Ox 100 04/07/23 07:55 Oxygen Delivery Method Room Air 04/07/23 07:55 BMI result Body Mass Index 23.5 Tobacco/Smoking Status: Tobacco use Status Tobacco use date assessed 12/14/22 04/07/23 07:48 Patient Tobacco Use Status Never used Tobacco 04/07/23 07:48 e-Cigarette/Vaping Use Never Used 04/07/23 07:48 Thrive Assessment: Date of Thrive Assessment Date Thrive assessed 12/14/22 04/07/23 07:48 Const Orientation/consciousness: patient oriented x3 HENMT Head: Yes normal to inspection, Yes normocephalic and Yes atraumatic Ears: external ears normal Eyes General: appearance normal, both eyes and all related structures Eyelids: Yes eyelids normal Conjunctivae: conjunctivae normal Neck Neck: Yes normal visual inspection and Yes supple Resp Effort & Inspection: normal respiratory effort Auscultation: clear to auscultation bilaterally Cardio Jugular venous distension: no JVD Rate: regular rate Rhythm: regular rhythm Heart sounds: S1 normal heart sound present and S2 normal heart sound present GI Inspection: Yes normal to inspection Palpation (GI): Soft to palpation and nontender Auscultation: normal bowel sounds Skin General skin exam: no rashes or lesions noted Neuro General: patient oriented x3 and no focal motor deficits Extrem General: Yes full ROM Psych Appearance: grossly normal Assessment and Plan Assessment & Plan (1) Physical exam: Code(s): Z00.00 - Encounter for general adult medical examination without abnormal findings Plan: Repeat in a year Orders: Orders PSA,Total (Free>4and<10) 6 Months Z12.5 - Encounter for screening for malignant neoplasm of prostate Comprehensive [place]. Panel Fast 6 Months Z00.00 - Encounter for general adult medical examination without abnormal findings Lipid Panel 6 Months E78.5 - Hyperlipidemia, unspecified Medications: New rosuvastatin 10 mg PO DAILY 90 days 90 tabs 1RF E78.5 - Hyperlipidemia, unspecified Discontinued rosuvastatin Discontinued Reason: Patient Completed Course 20 mg PO BEDTIME 90 days 90 tabs 1RF E78.5 - Hyperlipidemia, unspecified Coding Level of Care Code Est Pt Prev Care 40-64y(32072) Diagnoses Physical exam Z00.00 Time Spent (min) 33
[2023-04-07 07:55] VITALS: BP 136/82; PULSE 65; O2SAT 100; BMI 23.5
== END 2023-04-07 08:22 | disposition home or self-care (01) ==
PROVIDERS: Visit Provider Internal Medicine
DX: Z00.00 Encounter for general adult medical examination without abnormal findings (principal)
CPT/HCPCS: 99396

== ENCOUNTER 2023-10-06 07:40 | Outpatient (AMB) | payer OTHER, SELFPAY ==
[2023-10-06 07:56] VITALS: BP 130/80; BMI 23.4
--- NOTE | 2023-10-06 07:56 | MHC.PC.OV ---
Vital Signs 10/06/23 07:56 Height 5 ft 6 in Weight 145 lb BMI 23.4 BP 130/80 Blood Pressure Location Lt brachial Position Sitting Intake Visit Reasons: lipids Intake Note: Patient here for a follow up lipids Multimedia Manager Required: No Accompanied by: Self / Same As Patient Allergies ezetimibe [From Zetia] Allergy (Intermediate, Verified 10/06/23 08:04) Abdominal pains nut - unspecified Allergy (Intermediate, Verified 10/06/23 08:04) Swelling oxycodone [From PERCOCET] Allergy (Intermediate, Verified 10/06/23 08:04) HYPOTENSION, N&V, UNCONSCIOUS Oovvoca-RND-ZpR Reductase Inhibitor [Xtkpwiz-Iye-Rqc Reductase Inhibitor] Allergy (Intermediate, Verified 10/06/23 08:04) Increases liver enzymes Medication List - Last Reconciled 10/06/23 by Enedina Lorenz MD lisinopril 5 mg PO DAILY 90 days polyethylene glycol 3350 (Miralax) 17 grams PO DAILY rosuvastatin 10 mg PO DAILY 90 days Tobacco use date assessed: 10/06/23 Dental Screening Dental Screen Date: 10/06/23 Did you have a dental visit in the last 12 months?: Yes Did you have a dental problem in the last 6 months where you did not have access to dental care?: No Was dental information given to patient?: Patient has dentist HPI HPI Comments History of Present Illness Details This is a 63-year-old male that comes for his physical exam. Colonoscopy done 2022 showing internal hemorrhoids only. Next colonoscopy should be 2032 but he wants it earlier due to positive family history of colon cancer. No chest pain or shortness of breath. PFSH Medical History Guillain-[place] HLD (hyperlipidemia) Chest pain Physical exam Hypertension Hip pain BPH (benign prostatic hyperplasia) Impaired glucose tolerance Dyslipidemia Surgical History H/O colonoscopy History of hernia repair History of right hip replacement History of cystoscopy History of hip surgery History of appendectomy History of laparoscopic cholecystectomy Family History Father Skin cancer Prostate cancer Mother Diabetes Hypertension Breast cancer Maternal Grandmother Diabetes Hypertension CVD (cardiovascular disease) Maternal Grandfather Skin cancer Maternal Grandmother Breast cancer Daughter No problems noted. Brother No problems noted. Sister No problems noted. Maternal Uncle Diabetes Pancreatic cancer Maternal Uncle Prostate cancer Paternal Uncle Colon cancer Paternal Uncle Prostate cancer Paternal Uncle Skin cancer Social History Housing: House Alcohol intake: never Patient Tobacco Use Status: Never used Tobacco e-Cigarette/Vaping Use: Never Used Second Hand Smoke Exposure: Yes service: No Current occupational status: retired Current occupational exposures/hazards: No Cognitive needs: No Hearing needs: No Vision needs: Yes (glasses) Questionnaire PHQ-9 Over the last 2 weeks, how often have you been bothered by any of the following problems? 1. Little interest or pleasure in doing things: not at all 2. Feeling down, depressed, or hopeless: not at all 3. Trouble falling or staying asleep, or sleeping too much: not at all 4. Feeling tired or having little energy: not at all 5. Poor appetite or overeating: not at all 6. Feeling bad about yourself - or that you are a failure or have let yourself or your family down: not at all 7. Trouble concentrating on things, such as reading the newspaper or watching television: not at all 8. Moving or speaking so slowly that other people could have noticed. Or the opposite - being so fidgety or restless that you have been moving around a lot more than usual: not at all 9. Thoughts that you would be better off or of hurting yourself in some way: not at all Total score: 0 Depression Screening Interpretation: Negative Depression Screening Done: Yes 05681 - PHQ-9 Billing: Yes Source: Developed by Drs. Rj Keen, Nubia Gallegos, Robert Reyna and colleagues, with an educational thuy from [employer]. Thrive Questionnaire Date Thrive assessed: 10/06/23 I am a: Patient What is your living situation today?: I have a steady place to live Within the past 12 months, did the food you bought not last and you didn't have the money to get more?: Never true Within the past 12 months, did you worry whether your food would run out before you got money to buy more?: Never true Do you have trouble paying for medicines?: No Do you have trouble getting transportation to medical appointments?: No Do you have trouble paying your heating and electricity bill?: No Do you have trouble taking care of your child, family member or friend?: No Do you have trouble with day-to-day activities such as bathing, preparing meals, shopping, managing finances, etc.?: No Are you currently unemployed and looking for a job?: No Are you interested in more education?: No Please select the resources that you would like help with: None Currently or been in a relationship where the following occur: no concerns reported THRIVE Score: 0 AUDIT C Alcohol Use Questionnaire (AUDIT-C) 1. How often do you have a drink containing alcohol?: Never Total Score: 0 REYNALDO-7 AMB Questionnaire REYNALDO-7 Date REYNALDO - 7 assessed: 10/06/23 Feeling nervous, anxious, or on edge: 1 = Several days Not being able to stop or control worryin = Not at all Worrying too much about different things: 1 = Several days Trouble relaxin = Not at all Being so restless that it is hard to sit still: 0 = Not at all Becoming easily annoyed or irritable: 0 = Not at all Feeling afraid as if something awful might happen: 0 = Not at all Total REYNALDO-7 score (0-4 normal; 5-9 mild; 10-14 moderate; 15-21 severe): 2 Source: Developed by Drs. Rj Keen, Nubia Gallegos, Robert Reyna and colleagues, with an educational thuy from [employer]. REYNALDO-7 Assessment Billing REYNALDO-7 Assessment Tool: REYNALDO-7 Assessment 53025 Review of Systems Const All systems reviewed & are unremarkable except as noted in HPI and below Eyes Reports no additional complaints, Denies change in vision and Denies other visual disturbances Card Denies chest pain at rest, Denies chest pain with activity, Denies edema, Denies irregular heart rhythm, Denies claudication, Denies dyspnea, Denies dyspnea on exertion, Denies orthopnea, Denies paroxysmal nocturnal dyspnea and Denies slow heart rate Resp Denies cough, Denies dyspnea and Denies dyspnea on exertion GI Denies abdominal pain, Denies change in bowel habits, Denies excessive flatus, Denies nausea and Denies vomiting Denies urinary hesitancy, Denies urinary incontinence and Denies urinary urgency Musc Denies atrophy, Denies deformity and Denies limited range of motion Physical exam (Primary Care) Vital Signs: Last Vital Signs BP 130/80 10/06/23 07:56 BMI result Body Mass Index 23.4 Tobacco/Smoking Status: Tobacco use Status Tobacco use date assessed 10/06/23 10/06/23 08:02 Patient Tobacco Use Status Never used Tobacco 10/06/23 08:02 e-Cigarette/Vaping Use Never Used 10/06/23 08:02 PHQ-9: PHQ-9 Score PHQ-9: Total score 0 10/06/23 08:02 Depression Screening Interpretation: Negative Thrive Assessment: Date of Thrive Assessment Date Thrive assessed 10/06/23 10/06/23 08:02 Currently or been in a relationship where the following occur: no concerns reported Const Orientation/consciousness: patient oriented x3 HENMT Head: Yes normal to inspection, Yes normocephalic and Yes atraumatic Ears: external ears normal Eyes General: appearance normal, both eyes and all related structures Eyelids: Yes eyelids normal Conjunctivae: conjunctivae normal Neck Neck: Yes normal visual inspection and Yes supple Resp Effort & Inspection: normal respiratory effort Auscultation: clear to auscultation bilaterally Cardio Jugular venous distension: no JVD Rate: regular rate Rhythm: regular rhythm Heart sounds: S1 normal heart sound present and S2 normal heart sound present GI Inspection: Yes normal to inspection Palpation (GI): Soft to palpation and nontender Auscultation: normal bowel sounds Skin General skin exam: no rashes or lesions noted Neuro General: patient oriented x3 and no focal motor deficits Extrem General: Yes full ROM Psych Appearance: grossly normal Assessment and Plan Assessment & Plan (1) Physical exam: Code(s): Z00.00 - Encounter for general adult medical examination without abnormal findings Plan: Repeat in a year. Coding Level of Care Code Est Pt Prev Care 40-64y(36154) Diagnoses Physical exam Z00.00 Additional Codes REYNALDO-7 Assessment Billing - REYNALDO-7 Assessment Tool: REYNALDO-7 Assessment 09330 ([id number]) Time Spent (min) 32
== END 2023-10-06 08:17 | disposition home or self-care (01) ==
PROVIDERS: Visit Provider Internal Medicine
DX: Z00.00 Encounter for general adult medical examination without abnormal findings (principal)
CPT/HCPCS: 99396

== ENCOUNTER 2023-10-07 06:45 | Outpatient (REF) | payer OTHER, SELFPAY ==
[2023-10-07 08:48] LABS: Alanine Aminotransferase 44 U/L (0-40); Albumin Level 4.2 g/dL (3.5-5.0); Alkaline Phosphatase 69 U/L (39-117); Anion Gap 10 (12-20); Aspartate Amino Transferase 21 U/L (5-37); Bilirubin Total 0.5 mg/dL (0.0-1.0); Blood Urea Nitrogen 16 mg/dL (9-16); Calcium 8.9 mg/dL (8.4-10.2); Carbon Dioxide 26 mmol/L (22-29); Chloride 108 mmol/L (96-108); Cholesterol 180 mg/dL (<200); Estimated Glomerular Filt Rate > 60; Glucose Fasting 86 mg/dL (60-99); HDL Cholesterol 36 mg/dL (>40); LDL Cholesterol Calculated 110 mg/dL (<100); Potassium 4.2 mmol/L (3.3-5.1); Sodium 140 mmol/L (135-145); Total Protein 6.6 g/dL (6.5-8.0); Triglycerides 172 mg/dL (<150)
[2023-10-07 08:55] LABS: PSA,Total (Free>4and<10) 3.68 ng/mL (0.00-4.00)
== END 2023-10-07 06:46 | disposition home or self-care (01) ==
LOC: HO.LAB 06:45
PROVIDERS: PCP Internal Medicine; Visit Provider Internal Medicine
DX: Z00.00 Encounter for general adult medical examination without abnormal findings (principal); E78.5 Hyperlipidemia, unspecified; Z12.5 Encounter for screening for malignant neoplasm of prostate
CPT/HCPCS: 36415; 80053; 80061; 84153

== ENCOUNTER 2024-05-08 09:32 | Outpatient (REF) | payer OTHER, SELFPAY | END 2024-05-08 09:33 | disposition home or self-care (01) | LOC: HO.HOSX 09:32 | PROVIDERS: Visit Provider Physician Assistant | DX: Z13.89 Encounter for screening for other disorder (principal) ==

== ENCOUNTER 2024-05-30 12:23 | Outpatient (AMB) | payer OTHER, SELFPAY ==
--- NOTE | 2024-05-30 12:34 | MHC.PC.OV ---
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 Required: No Accompanied by: Self / Same As Patient Allergies ezetimibe [From Zetia] Allergy (Intermediate, Verified 05/30/24 12:51) Abdominal pains nut - unspecified Allergy (Intermediate, Verified 05/30/24 12:51) Swelling oxycodone [From PERCOCET] Allergy (Intermediate, Verified 05/30/24 12:51) HYPOTENSION, N&V, UNCONSCIOUS Rpcvzcj-OAV-UcU Reductase Inhibitor [Nfkphsp-Vai-Ebu Reductase Inhibitor] Allergy (Intermediate, Verified 05/30/24 12:51) Increases liver enzymes Medication List - Last Reconciled 05/30/24 by Enedina Lorenz MD ibuprofen 800 mg PO Q8H PRN 30 days lisinopril 5 mg PO DAILY 90 days polyethylene glycol 3350 (Miralax) 17 grams PO DAILY rosuvastatin 10 mg PO DAILY 90 days Tobacco use date assessed: 10/06/23 Dental Screening Dental Screen Date: 10/06/23 HPI HPI Comments History of Present Illness Details This is a 63-year-old male that comes for his physical exam. Colonoscopy done 2022 was normal and next colonoscopy should be 2032. He complains of a skin lesion and has family history of skin cancer in first-degree relative and would like to be refer again to Dermatology. He also had an episode of syncope in which he lost consciousness while in the shower. No witnesses. This happened a month ago. No bowel or bladder incontinence. He denies any palpitations or any other symptom before syncope. He also has right elbow pain and an x-ray will be ordered. 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[place] HLD (hyperlipidemia) Chest pain Physical exam Hypertension Hip pain BPH (benign prostatic hyperplasia) Impaired glucose tolerance Dyslipidemia Surgical History (Updated 05/30/24 @ 12:55 by Enedina Lorenz MD) H/O colonoscopy History of hernia repair History of right hip replacement History of cystoscopy History of hip surgery History of appendectomy History of laparoscopic cholecystectomy Family History Father Skin cancer Prostate cancer Mother Diabetes Hypertension Breast cancer Maternal Grandmother Diabetes Hypertension CVD (cardiovascular disease) Maternal Grandfather Skin cancer Maternal Grandmother Breast cancer Daughter No problems noted. Brother No problems noted. Sister No problems noted. Maternal Uncle Diabetes Pancreatic cancer Maternal Uncle Prostate cancer Paternal Uncle Colon cancer Paternal Uncle Prostate cancer Paternal Uncle Skin cancer Social History Housing: House Alcohol intake: never Patient Tobacco Use Status: Never used Tobacco e-Cigarette/Vaping Use: Never Used Second Hand Smoke Exposure: Yes service: No Current occupational status: retired Current occupational exposures/hazards: No Cognitive needs: No Hearing needs: No Vision needs: Yes (glasses) Questionnaire PHQ-9 Over the last 2 weeks, how often have you been bothered by any of the following problems? 1. Little interest or pleasure in doing things: several days 2. Feeling down, depressed, or hopeless: not at all 3. Trouble falling or staying asleep, or sleeping too much: not at all 4. Feeling tired or having little energy: not at all 5. Poor appetite or overeating: several days 6. Feeling bad about yourself - or that you are a failure or have let yourself or your family down: not at all 7. Trouble concentrating on things, such as reading the newspaper or watching television: not at all 8. Moving or speaking so slowly that other people could have noticed. Or the opposite - being so fidgety or restless that you have been moving around a lot more than usual: not at all 9. Thoughts that you would be better off or of hurting yourself in some way: not at all Total score: 2 Depression Screening Interpretation: Positive Depression Screening Follow-up: Existing condition and Follow-up Visit Requested Depression Screening Done: Yes 35969 - PHQ-9 Billing: Yes Source: Developed by Drs. Rj Keen, Nubia Gallegos, Robert Reyna and colleagues, with an educational thuy from [employer]. Thrive Questionnaire Date Thrive assessed: 05/30/24 I am a: Patient What is your living situation today?: I have a steady place to live THRIVE Score: 0 REYNALDO-7 AMB Questionnaire REYNALDO-7 Date REYNALDO - 7 assessed: 10/06/23 Source: Developed by Drs. Rj Keen, Nubia Gallegos, Robert Reyna and colleagues, with an educational thuy from [employer]. REYNALDO-7 Assessment Billing REYNALDO-7 Assessment Tool: REYNALDO-7 Assessment 93631 Review of Systems Const All systems reviewed & are unremarkable except as noted in HPI and below Card Denies chest pain at rest, Denies chest pain with activity, Denies edema, Denies irregular heart rhythm, Denies claudication, Denies dyspnea, Denies dyspnea on exertion, Denies orthopnea, Denies paroxysmal nocturnal dyspnea and Denies slow heart rate Resp Denies cough, Denies dyspnea and Denies dyspnea on exertion Denies urinary hesitancy, Denies urinary incontinence and Denies urinary urgency Musc Denies abnormal gait, Denies atrophy, Denies deformity and Denies limited range of motion Skin/Breast Denies bleeding lesions, Denies changing lesions and Denies rash Neuro Denies abnormal gait, Denies behavioral changes and Denies lack of coordination Psych Denies behavioral changes Physical exam (Primary Care) Vital Signs: Last Vital Signs BP 118/80 05/30/24 12:35 BMI result Body Mass Index 23.7 Tobacco/Smoking Status: Tobacco use Status Tobacco use date assessed 10/06/23 05/30/24 12:36 Patient Tobacco Use Status Never used Tobacco 05/30/24 12:36 e-Cigarette/Vaping Use Never Used 05/30/24 12:36 PHQ-9: PHQ-9 Score PHQ-9: Total score 2 05/30/24 12:56 Depression Screening Interpretation: Positive Depression Screening Follow-up: Existing condition and Follow-up Visit Requested Thrive Assessment: Date of Thrive Assessment Date Thrive assessed 05/30/24 05/30/24 12:36 HENMT Head: Yes normal to inspection, Yes normocephalic and Yes atraumatic Ears: external ears normal Eyes General: appearance normal, both eyes and all related structures Eyelids: Yes eyelids normal Conjunctivae: conjunctivae normal Neck Neck: Yes normal visual inspection and Yes supple Resp Effort & Inspection: normal respiratory effort Auscultation: clear to auscultation bilaterally Cardio Jugular venous distension: no JVD Rate: regular rate Rhythm: regular rhythm Heart sounds: S1 normal heart sound present and S2 normal heart sound present GI Inspection: Yes normal to inspection Palpation (GI): Soft to palpation and nontender Auscultation: normal bowel sounds Skin General skin exam: no rashes or lesions noted Neuro General: no focal motor deficits Extrem General: Yes full ROM Psych Appearance: grossly normal Office Procedures Flu Questionnaire Does the patient have a severe egg allergy?: No Does the patient have severe life threatening allergies?: No Does the patient have a fever or illness today?: No 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 Has the patient ever had any past reaction to a flu shot?: No Immunizations Fluarix Triv [id number] (PF) 45 mcg (15 mcg x 3)/0.5 mL IM syringe Performing Provider: Enedina Lorenz MD [facility] Administered by: NOMAN Osorio on 05/30/24 13:09 Dose Route Admin Location Dispensed Lot Number Expiration Date [facility] [place] 0.5 mL IM Right Deltoid 0.5 mL [id number] 01/14/25 [id number] [employer] VIS Given Date VIS Provided VIS Publication Date 05/30/24 Single Vaccine 21 Eligibility Eligibility Date Funding Source Not [facility] Eligible 05/30/24 Private Coding Level of Care Code Est Pt Level 3 (11153) Est Pt Prev Care 40-64y(82541) Diagnoses Physical exam Z00.00 Syncope, unspecified syncope type R55 Syncope type: unspecified Right elbow pain M25.521 Skin lesion L98.9 Additional Codes REYNALDO-7 Assessment Billing - REYNALDO-7 Assessment Tool: REYNALDO-7 Assessment 52500 ([id number]) PHQ-9 - 46112 - PHQ-9 Billing: Yes ([id number]) Time Spent (min) 33 Assessment & Plan Assessment & Plan (1) Physical exam: Code(s): Z00.00 - Encounter for general adult medical examination without abnormal findings Category: Medical Plan: Repeat in a year. (2) Syncope: Code(s): R55 - Syncope and collapse Category: Medical Qualifiers: Syncope type: unspecified Qualified Code(s): R55 - Syncope and collapse Plan: Echocardiogram ordered. CT of the head ordered. EKG ordered. (3) Right elbow pain: Code(s): M25.521 - Pain in right elbow Category: Medical Plan: X-ray ordered. (4) Skin lesion: Code(s): L98.9 - Disorder of the skin and subcutaneous tissue, unspecified Category: Medical Plan: Referred to Dermatology. Orders: Orders CT head/brain wo IV con Today R55 - Syncope and collapse ECG 12 lead EKG Today R55 - Syncope and collapse Influenza [id number] Immunization Today Z23 - Encounter for immunization Lipid Panel Today E78.5 - Hyperlipidemia, unspecified Comprehensive [place]. Panel Fast Today Z00.00 - Encounter for general adult medical examination without abnormal findings CA echo transthoracic complete Today R55 - Syncope and collapse XR elbow RT 2V Today M25.521 - Pain in right elbow Referrals Dermatology Referral L98.9 - Disorder of the skin and subcutaneous tissue, unspecified Medications: Refilled lisinopril 5 mg PO DAILY 90 days 90 tabs 1RF I10 - Essential (primary) hypertension
[2024-05-30 12:35] VITALS: BP 118/80; BMI 23.7
== END 2024-05-30 13:10 | disposition home or self-care (01) ==
PROVIDERS: PCP Internal Medicine; Visit Provider Internal Medicine
DX: Z00.00 Encounter for general adult medical examination without abnormal findings (principal); R55 Syncope and collapse; M25.521 Pain in right elbow; L98.9 Disorder of the skin and subcutaneous tissue, unspecified

== ENCOUNTER → 2024-05-30 12:23 | Outpatient (BNVA) | payer OTHER, SELFPAY | PROVIDERS: PCP Internal Medicine; Visit Provider Internal Medicine | DX: Z00.01 Encounter for general adult medical examination with abnormal findings (principal); Z23 Encounter for immunization; R55 Syncope and collapse; M25.521 Pain in right elbow; L98.9 Disorder of the skin and subcutaneous tissue, unspecified | CPT/HCPCS: 90471; 90656; 96127; 99212; 99396 ==

== ENCOUNTER 2024-06-01 06:57 | Outpatient (REF) | payer OTHER, SELFPAY ==
[2024-06-01 07:55] LABS: Alanine Aminotransferase 36 U/L (0-40); Albumin Level 4.1 g/dL (3.5-5.0); Alkaline Phosphatase 64 U/L (39-117); Anion Gap 8 (12-20); Aspartate Amino Transferase 28 U/L (5-37); Bilirubin Total 0.7 mg/dL (0.0-1.0); Blood Urea Nitrogen 19 mg/dL (9-16); Calcium 8.8 mg/dL (8.4-10.2); Carbon Dioxide 26 mmol/L (22-29); Chloride 108 mmol/L (96-108); Cholesterol 206 mg/dL (<200); Estimated Glomerular Filt Rate > 60; Glucose Fasting 106 mg/dL (60-99); HDL Cholesterol 39 mg/dL (>40); LDL Cholesterol Calculated 142 mg/dL (<100); Potassium 4.3 mmol/L (3.3-5.1); Sodium 138 mmol/L (135-145); Total Protein 6.5 g/dL (6.5-8.0); Triglycerides 125 mg/dL (<150)
== END 2024-06-01 06:58 | disposition home or self-care (01) ==
LOC: HO.LAB 06:57
PROVIDERS: PCP Internal Medicine; Visit Provider Internal Medicine
DX: Z00.00 Encounter for general adult medical examination without abnormal findings (principal); E78.5 Hyperlipidemia, unspecified
CPT/HCPCS: 36415; 80053; 80061

== ENCOUNTER → 2024-06-20 08:00 | Outpatient (REF) | payer OTHER, SELFPAY ==
--- NOTE | 2024-06-20 08:21 | CA_ITS ---
Transthoracic Echocardiogram Patient (Last, First, Middle): Tucker Ferrer A Gender: Male Date of : 1960 Age: 63 Procedure Date: 06/20/2024 Procedure Type: Transthoracic Echocardiogram Location: OP Height: 165.1 cm Weight: 66.68 kg BSA: 1.74 m2 Heart Rate: 52 bpm BP: 118 / 78 mmHg Residency Coordinator: SB Referring MD: Enedina Lorenz MD Document Examiner: Jasvir Murphy MD Symptoms: R55 - Syncope and collapse Study Quality: Adequate ECG Rhythm: Bradycardia Conclusions: - Essentially normal study Findings Left Ventricle Normal left ventricular size, thickness, and systolic function. The visually estimated ejection fraction is between 55-60%. Spectral Doppler is indicative of a normal filling pattern. Right Ventricle Normal right ventricular cavity size and systolic function. Atria Both atria are normal in size. There is a mobile atrial septum noted. There is no evidence of interatrial shunt. Aortic Valve Normal aortic valve structure and function. There is no aortic valve stenosis. There is no aortic valve regurgitation. Mitral Valve Normal mitral valve structure and function. There is no mitral valve regurgitation. There is no mitral valve stenosis. Pulmonic Valve The pulmonic valve is likely normal. There is trace pulmonic valve regurgitation. Tricuspid Valve Normal tricuspid valve structure. There is trace tricuspid valve regurgitation. The right ventricular systolic pressure is normal. The right ventricular systolic pressure is 25 mmHg. Normal right atrial pressure. There is no evidence of pulmonary hypertension. Great Vessels All visible segments of the aorta are normal in size. The pulmonary artery was not well visualized. There is no dilatation of the ascending aorta measuring 2.80 cm. Venous The inferior vena cava is normal in size and collapses greater than 50% with inspiration. Pericardium/Pleural There is no evidence of pericardial effusion. Prior Study Comparison Changes noted compared to prior study dated: 04/15/2022. There is no clear wall motion abnormality of the inferoseptal wall. Measurements 2D Linear Measurements IVSd: 0.82 0.6-0.9/0.6-1.0 cm LVIDd: 4.42 3.9-5.3/4.2-5.9 cm LVIDd Index: 2.54 2.4-3.2/2.2-3.1 cm/m2 LVIDs: 2.85 2.0-3.6 cm LVPWd: 0.57 0.7-1.1 cm LV Mass: 114.06 67-162/88-224 g LV Mass Index: 65.55 43-95/49-115 g/m2 LVOT Diam: 2.00 3.0+(-)1.3 cm 2D Systolic Function EF 4C: 50.30 >55% EF 2C: 66.10 >55% EF BiP: 59.30 >55% Mitral Valve MV Pk E: 0.84 MV PK A: 0.71 MV Decel Time: 200.00 E/A: 1.20 E'Lateral: 10.70 E'Medial: 6.96 E/E' Med: 12.10 E/E' Lat: 7.90 PHT: 59.00 MVA PHT: 3.73 Decel [place]: 4.22 Aortic Valve AoV Pk Reuben: 1.13 AoV Pk Grad: 5.00 GRACIELA: 2.38 LVOT LVOT Pk Reuben: 0.86 LVOT Mn Reuben: 0.58 LVOT VTI: 0.18 LVOT Pk Grad: 3.00 LVOT Mn Grad: 2.00 LVOT Diam: 2.00 LVOT Area: 3.14 Diastolic Function MV Pk E: 0.84 MV Pk A: 0.71 E/A: 1.20 E'Medial: 6.96 E/E' Med: 12.10 E' Laterial: 10.70 E/E' Lat: 7.90 Right Ventricle TAPSE (mm): 15.10 TVS' Reuben: 10.00 Tricuspid Valve TR Pk Reuben: 2.32 TR Pk Grad: 22.00 RA Press: 3.00 RVSP: 25.00 Great Vessels Aorta Sinus of Valsalva: 2.90 2.0-3.5 cm Ao Asc: 2.80 2.1-3.4 cm Ao Arch: 2.70 Pulmonary Veins Pulm Vein S/D 1.80 Pulmonary Valve PV Pk Reuben: 0.96 Peak PV Grad: 4.00 MI Pk Reuben: 1.53 Updated in Other Vendor System with Status of Final Jasvir Murphy MD electronically signed on 06/20/2024 2:30:19 PM with status of Final
--- NOTE | 2024-06-20 08:21 | ECG_ITS ---
Test Reason : syncope Blood Pressure : / mmHG Vent. Rate : 052 BPM Atrial Rate : 052 BPM P-R Int : 178 ms QRS Dur : 090 ms QT Int : 390 ms P-R-T Axes : 048 044 039 degrees QTc Int : 362 ms Sinus bradycardia Otherwise normal ECG When compared to the previous EKG of Sinus bradycardia present now Referred By: Enedina Lorenz Electronically Signed By:David Magaña
== END ==
LOC: HO.CARD 08:00
PROVIDERS: PCP Internal Medicine; Visit Provider Internal Medicine
DX: R55 Syncope and collapse (principal); M25.521 Pain in right elbow
CPT/HCPCS: 73070; 93005; 93306

== ENCOUNTER → 2024-06-20 08:21 | Outpatient (BNV) | payer OTHER, SELFPAY | PROVIDERS: PCP Internal Medicine; Visit Provider Internal Medicine Cardiovascular Disease | DX: R55 Syncope and collapse (principal); R00.1 Bradycardia, unspecified | CPT/HCPCS: 93010; 93306 ==

== ENCOUNTER 2024-07-24 08:38 | Outpatient (REF) | payer OTHER, SELFPAY ==
--- NOTE | ~2024-07-24 | CT_ITS ---
CLINICAL HISTORY: R55 - Syncope and collapse CT head without contrast Comparison: None Findings: No intra-axial mass, midline shift, hydrocephalus, or acute hemorrhage. No significant atrophy-like change or white matter disease. The visualized paranasal sinuses and mastoid air cells are normal. The orbits are unremarkable. No skull fracture. IMPRESSION: 1. No acute intracranial findings This document has been electronically signed by: Montana Farmer MD on 07/24/2024 14:43:23
== END 2024-07-24 08:39 | disposition home or self-care (01) ==
LOC: HO.CT 08:38
PROVIDERS: PCP Internal Medicine; Visit Provider Internal Medicine
DX: R55 Syncope and collapse (principal)
CPT/HCPCS: 70450

== ENCOUNTER → 2024-07-24 08:40 | Outpatient (BNV) | payer OTHER, SELFPAY | PROVIDERS: PCP Internal Medicine; Visit Provider Radiology Diagnostic Radiology | DX: R55 Syncope and collapse (principal) | CPT/HCPCS: 70450 ==

== ENCOUNTER 2024-10-12 23:35 | Emergency (ER) | payer OTHER, SELFPAY ==
--- NOTE | 2024-10-12 | ECG_ITS ---
Test Reason : CP/HTN Blood Pressure : */* mmHG Vent. Rate : 83 BPM Atrial Rate : 83 BPM P-R Int : 180 ms QRS Dur : 88 ms QT Int : 344 ms P-R-T Axes : 33 20 19 degrees QTcB Int : 404 ms Normal sinus rhythm Normal ECG When compared with ECG of 20-Jun-2024 08:26, Vent. rate has increased by 31 bpm Referred By: Generic ED Physician Electronically Signed By: MINERVA MATOS MD
[2024-10-12 23:55] VITALS: BP 150/91; PULSE 88; RESP 16; TEMP 37; O2SAT 99; BMI 25.0
[2024-10-13 00:10] LABS: MANUAL DIFF FLAG NO
[2024-10-13 00:12] LABS: Basophils Percent Auto 0.4 % (0-2); Eosinophils Absolute Auto 0.1 X10*3/uL (0.0-0.4); Eosinophils Percent Auto 1.8 % (0-4); Hematocrit 42.6 % (42.0-52.0); Hemoglobin 14.9 g/dl (14.0-18.0); Imm Gran Abs Auto 0.02 X10*3/uL (0.00-0.03); Imm Gran Pct Auto 0.3 % (0.0-0.4); Lymphocytes Absolute Auto 1.9 X10*3/uL (1.2-4.9); Lymphocytes Percent Auto 26.3 % (20-40); Mean Corpuscular Hemoglobin 28.7 pg (27.0-33.0); Mean Corpuscular Volume 82.1 fL (80.0-98.0); Mean Platelet Volume 9.7 fL (9.4-12.4); Monocytes Absolute Auto 0.8 X10*3/uL (0.1-1.2); Monocytes Percent Auto 11.1 % (2-11); Neutrophils Absolute Auto 4.4 x10*3/uL (2.0-8.3); Neutrophils Percent Auto 60.1 % (45-73); Platelet Count 194 X10*3/uL (160-400); Red Blood Count 5.19 X10*6/uL (4.60-5.80); Red Cell Distribution Width 13.3 % (11.0-16.0); White Blood Count 7.4 X10*3/uL (4.8-10.8)
[2024-10-13 00:27] LABS: Alanine Aminotransferase 64 U/L (0-40); Albumin Level 4.3 g/dL (3.5-5.0); Alkaline Phosphatase 68 U/L (39-117); Anion Gap 9 (12-20); Aspartate Amino Transferase 30 U/L (5-37); Bilirubin Total 0.4 mg/dL (0.0-1.0); Blood Urea Nitrogen 16 mg/dL (9-16); Calcium 9.3 mg/dL (8.4-10.2); Carbon Dioxide 28 mmol/L (22-29); Chloride 108 mmol/L (96-108); Creatinine Clr Calc Pharmacy 67.5; Estimated Glomerular Filt Rate > 60; Glucose Random 130 mg/dL (60-115); Lipase 55 U/L (8-78); Potassium 4.1 mmol/L (3.3-5.1); Sodium 141 mmol/L (135-145)
[2024-10-13 00:33] LABS: Troponin-I High Sensitivity < 2.7 ng/L (<3.5-35.0)
[2024-10-13 02:29] VITALS: BP 128/86; PULSE 68; RESP 14; TEMP 36.6; O2SAT 99
[2024-10-13 05:37] VITALS: BP 136/95; PULSE 58; RESP 14; TEMP 36.7; O2SAT 99
--- NOTE | 2024-10-13 07:07 | ED.CHESTPAIN ---
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 has the previous stress test and echo which were amelia comes here as while sleeping with having the palpitation episode checked his blood pressure it was 175/115 on arrival patient's blood pressure was 150/91 heart rate of 88 beats per minute patient has had labs done prior to my arrival showed troponin negative Related Data Previous Rx's ?Medication ?Instructions ?Recorded polyethylene glycol 3350 17 17 g PO DAILY #510 grams 12/30/22 gram/dose oral powder (Miralax) rosuvastatin 10 mg tablet 10 mg PO DAILY 90 days #90 tabs 10/02/23 ibuprofen 800 mg tablet 800 mg PO Q8H PRN pain 30 days #90 06/15/24 tabs lisinopril 5 mg tablet 5 mg PO DAILY 90 days #90 tabs 07/04/24 lorazepam 0.5 mg tablet (Ativan) 0.5 mg PO DAILY PRN anxiety #14 10/13/24 tabs Allergies Allergy/AdvReac Type Severity Reaction Status Date / Time ezetimibe [From Zetia] Allergy Intermediate Abdominal Verified 10/12/24 23:59 pains nut - unspecified Allergy Intermediate Swelling Verified 10/12/24 23:59 oxycodone [From PERCOCET] Allergy Intermediate HYPOTENSION, Verified 10/12/24 23:59 N&V, UNCONSCIOUS Fedrqcq-YWN-BfC Reductase Allergy Intermediate Increases Verified 10/12/24 23:59 Inhibitor liver [Aibgzcj-Uxp-Lno Reductase enzymes Inhibitor] Review of Systems Review of Systems: Yes all other systems are reviewed and are negative [facility] Past Medical History Medical History Syncope Guillain-[place] HLD (hyperlipidemia) Chest pain Physical exam Hypertension Hip pain BPH (benign prostatic hyperplasia) Impaired glucose tolerance Dyslipidemia Surgical History H/O colonoscopy History of hernia repair History of right hip replacement History of cystoscopy History of hip surgery History of appendectomy History of laparoscopic cholecystectomy Family History Family History Father Skin cancer Prostate cancer Mother Diabetes Hypertension Breast cancer Maternal Grandmother Diabetes Hypertension CVD (cardiovascular disease) Maternal Grandfather Skin cancer Maternal Grandmother Breast cancer Daughter No problems noted. Brother No problems noted. Sister No problems noted. Maternal Uncle Diabetes Pancreatic cancer Maternal Uncle Prostate cancer Paternal Uncle Colon cancer Paternal Uncle Prostate cancer Paternal Uncle Skin cancer Social History Social History Housing: House Alcohol intake: never Patient Tobacco Use Status: Never used Tobacco Smoked in Last 30 Days: No e-Cigarette/Vaping Use: Never Used Second Hand Smoke Exposure: Yes Use of substances other than those prescribed or required for medical reasons: No Advance Directives: No Advance Directives Information Provided: Yes Do you have a plan to hurt others: No Plan service: No Current occupational status: retired Current occupational exposures/hazards: No Cognitive needs: No Hearing needs: No Vision needs: Yes (glasses) Physical Exam Vital Signs: Vital Signs: Last Vital Signs Temp 98.1 F 10/13/24 05:37 Pulse 62 10/13/24 07:09 Resp 18 10/13/24 07:09 BP 133/91 H 10/13/24 07:09 Pulse Ox 98 10/13/24 07:09 O2 Del Method Room Air 10/13/24 05:37 BMI result Body Mass Index 25.0 Appearance: Alert. Oriented X3. No acute distress. Eyes: PERRLA, No Nystagmus ENT: Pharynx normal. Oral Mucosa moist Neck: Normal inspection. Neck supple. CVS: Normal heart rate and rhythm. Pulses normal. Respiratory: No respiratory distress. Equal air entry bilateral, no wheezing/rales/rhonchi Abdomen: Soft and nontender. Bowel sounds are present, no mass palpable, no CVA tenderness Skin: Skin warm and dry. Normal skin color. Normal skin turgor. Extremities: No lower extremity edema. No calf tenderness Neuro: Oriented X 3. No motor deficit. No sensory deficit.No cerebellar signs , cranial nerves II-XII intact Medical Decision Making Medical Decision Making MDM Narrative: Patient has atypical chest pain with prior echo and stress test negative initial troponin negative will repeat the 2nd troponin EKG without any ischemic changes Second set of troponin also without delta change will discharge patient home will prescribe lorazepam for anxiety Differential Diagnosis Differential Diagnoses: The differential diagnosis associated with the presentation includes Anxiety/palpitation/ACS/demand ischemia Lab Data [facility] Lab Attestation statement: I reviewed the patient's lab results. 10/13/24 00:05 10/13/24 00:05 Labs: Lab Results 10/13/24 10/13/24 Range/Units 00:05 07:07 WBC 7.4 (4.8-10.8) X10*3/uL RBC 5.19 (4.60-5.80) X10*6/uL Hgb 14.9 (14.0-18.0) g/dl Hct 42.6 (42.0-52.0) % MCV 82.1 (80.0-98.0) fL MCH 28.7 (27.0-33.0) pg MCHC 35.0 (31.0-36.0) g/dl RDW 13.3 (11.0-16.0) % Plt Count 194 (160-400) X10*3/uL MPV 9.7 (9.4-12.4) fL Immature Gran % (Auto) 0.3 (0.0-0.4) % Neut % (Auto) 60.1 (45-73) % Lymph % (Auto) 26.3 (20-40) % [place] % (Auto) 11.1 H (2-11) % Eos % (Auto) 1.8 (0-4) % Baso % (Auto) 0.4 (0-2) % Lymph # (Auto) 1.9 (1.2-4.9) X10*3/uL [place] # (Auto) 0.8 (0.1-1.2) X10*3/uL Eos # (Auto) 0.1 (0.0-0.4) X10*3/uL Baso # (Auto) 0.0 (0.0-0.2) X10*3/uL Abs Immat Gran (auto) 0.02 (0.00-0.03) X10*3/uL Absolute Neuts (auto) 4.4 (2.0-8.3) x10*3/uL Absolute Nucleated RBC 0.000 (0.0-0.012) X10*3/uL Nucleated RBC % (auto) 0.0 (0.0-0.2) /100WBC Sodium 141 (135-145) mmol/L Potassium 4.1 (3.3-5.1) mmol/L Chloride 108 (96-108) mmol/L Carbon Dioxide 28 (22-29) mmol/L Anion Gap 9 L (12-20) BUN 16 (9-16) mg/dL Creatinine 1.01 (0.5-1.4) mg/dL Estim Creat Clear Calc 67.5 Estimated GFR > 60 Random Glucose 130 H (60-115) mg/dL Calcium 9.3 (8.4-10.2) mg/dL Total Bilirubin 0.4 (0.0-1.0) mg/dL AST 30 (5-37) U/L ALT 64 H (0-40) U/L Alkaline Phosphatase 68 (39-117) U/L Troponin I High Sens < 2.7 3.9 (<3.5-35.0) ng/L Total Protein 7.0 (6.5-8.0) g/dL Albumin 4.3 (3.5-5.0) g/dL Lipase 55 (8-78) U/L Independent Interpretation I performed an independent interpretation of an: EKG Interpretation: Normal sinus rhythm heart rate 83 beats per minute normal interval normal axis no acute STT wave changes no acute ischemia Discharge Plan Discharge Clinical Impression: Atypical chest pain, Anxiety Patient Disposition: Home, Self-Care Instructions: Chest Pain (ED), Chronic Hypertension (ED), Anxiety (ED) Additional Instructions: Continue blood pressure medication your elevated blood pressure is likely from anxiety Take medication for anxiety as prescribed Follow with your PCP Prescriptions: New lorazepam [Ativan] 0.5 mg tablet 0.5 mg PO DAILY PRN (Reason: anxiety) Qty: 14 0RF No Action rosuvastatin 10 mg tablet 10 mg PO DAILY 90 Days Qty: 90 1RF ibuprofen 800 mg tablet 800 mg PO Q8H PRN (Reason: pain) 30 Days Qty: 90 0RF lisinopril 5 mg tablet 5 mg PO DAILY 90 Days Qty: 90 1RF polyethylene glycol 3350 [Miralax] 17 gram/dose powder 17 g PO DAILY Qty: 510 0RF Print Language: Polish
[2024-10-13 07:09] VITALS: BP 133/91; PULSE 62; RESP 18; O2SAT 98
[2024-10-13 07:33] LABS: Troponin-I High Sensitivity 3.9 ng/L (<3.5-35.0)
[2024-10-13 09:22] VITALS: BP 133/91; PULSE 62; RESP 18; TEMP 36.8; O2SAT 98
== END 2024-10-13 09:23 | disposition home or self-care (01) ==
PROVIDERS: Emergency Provider Internal Medicine; PCP Internal Medicine
DX: R07.89 Other chest pain (principal); F41.1 Generalized anxiety disorder; I10 Essential (primary) hypertension; Z79.899 Other long term (current) drug therapy
CPT/HCPCS: 36415; 80053; 83690; 84484; 85025; 93005; 99283; 99284

== ENCOUNTER → 2024-10-12 23:43 | Outpatient (BNV) | payer OTHER, SELFPAY | PROVIDERS: Emergency Provider Internal Medicine; PCP Internal Medicine; Visit Provider Internal Medicine Cardiovascular Disease | DX: I10 Essential (primary) hypertension (principal); R07.9 Chest pain, unspecified | CPT/HCPCS: 93010 ==

== ENCOUNTER 2024-11-27 09:45 | Outpatient (AMB) | payer OTHER, SELFPAY ==
--- NOTE | 2024-11-27 09:48 | A.OFFPC_ITS ---
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: No Accompanied by: Self / Same As Patient Allergies ezetimibe [From Zetia] Allergy (Intermediate, Verified 11/27/24 10:05) Abdominal pains nut - unspecified Allergy (Intermediate, Verified 11/27/24 10:05) Swelling oxycodone [From PERCOCET] Allergy (Intermediate, Verified 11/27/24 10:05) HYPOTENSION, N&V, UNCONSCIOUS Olasndy-ASI-RsH Reductase Inhibitor [Zmgmsgn-Wkj-Vhn Reductase Inhibitor] Allergy (Intermediate, Verified 11/27/24 10:05) Increases liver enzymes Medication List - Last Reconciled 11/27/24 by Enedina Lorenz MD ibuprofen 800 mg PO Q8H PRN 30 days lisinopril 5 mg PO DAILY 90 days polyethylene glycol 3350 (Miralax) 17 grams PO DAILY rosuvastatin 10 mg PO DAILY 90 days Tobacco use date assessed: 11/27/24 Dental Screening Dental Screen Date: 11/27/24 Did you have a dental visit in the last 12 months?: Yes Did you have a dental problem in the last 6 months where you did not have access to dental care?: No Was dental information given to patient?: Patient has dentist HPI HPI Comments History of Present Illness Details The patient is a 64-year-old male presenting with episodic nocturnal palpitations and hypertension management. He recalls an event in which his blood pressure reached 165/115 mmHg during an emergency room visit. 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 His blood pressure remains well-controlled during the day with current medication adherence, but nighttime readings sometimes exceed 140/90 mmHg. Previous cardiovascular evaluations, including echocardiograms and stress tests, have shown normal results. The patient reports occasional use of ibuprofen for hip pain associated with home renovations, acknowledging its potential impact on blood pressure levels. Recently, he experienced chest pressure during a routine home activity, and an EKG performed in the ER revealed no abnormal findings. 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[place] HLD (hyperlipidemia) Chest pain Physical exam Hypertension Hip pain BPH (benign prostatic hyperplasia) Impaired glucose tolerance Dyslipidemia Surgical History H/O colonoscopy History of hernia repair History of right hip replacement History of cystoscopy History of hip surgery History of appendectomy History of laparoscopic cholecystectomy Family History Father Skin cancer Prostate cancer Mother Diabetes Hypertension Breast cancer Maternal Grandmother Diabetes Hypertension CVD (cardiovascular disease) Maternal Grandfather Skin cancer Maternal Grandmother Breast cancer Daughter No problems noted. Brother No problems noted. Sister No problems noted. Maternal Uncle Diabetes Pancreatic cancer Maternal Uncle Prostate cancer Paternal Uncle Colon cancer Paternal Uncle Prostate cancer Paternal Uncle Skin cancer Social History Housing: House Alcohol intake: never Patient Tobacco Use Status: Never used Tobacco e-Cigarette/Vaping Use: Never Used Second Hand Smoke Exposure: Yes service: No Current occupational status: retired Current occupational exposures/hazards: No Cognitive needs: No Hearing needs: No Vision needs: Yes (glasses) Questionnaire PHQ-9 Over the last 2 weeks, how often have you been bothered by any of the following problems? 1. Little interest or pleasure in doing things: not at all 2. Feeling down, depressed, or hopeless: not at all 3. Trouble falling or staying asleep, or sleeping too much: not at all 4. Feeling tired or having little energy: not at all 5. Poor appetite or overeating: not at all 6. Feeling bad about yourself - or that you are a failure or have let yourself or your family down: not at all 7. Trouble concentrating on things, such as reading the newspaper or watching television: not at all 8. Moving or speaking so slowly that other people could have noticed. Or the opposite - being so fidgety or restless that you have been moving around a lot more than usual: not at all 9. Thoughts that you would be better off or of hurting yourself in some way: not at all Total score: 0 Depression Screening Interpretation: Negative Depression Screening Done: Yes 43557 - PHQ-9 Billing: Yes Source: Developed by Drs. Rj Keen, Nubia Gallegos, Robert Reyna and colleagues, with an educational thuy from [employer]. Thrive Questionnaire Date Thrive assessed: 11/27/24 I am a: Patient What is your living situation today?: I have a steady place to live Within the past 12 months, did the food you bought not last and you didn't have the money to get more?: Never true Within the past 12 months, did you worry whether your food would run out before you got money to buy more?: Never true Do you have trouble paying for medicines?: No Do you have trouble getting transportation to medical appointments?: No Do you have trouble paying your heating and electricity bill?: No Do you have trouble taking care of your child, family member or friend?: No Do you have trouble with day-to-day activities such as bathing, preparing meals, shopping, managing finances, etc.?: No Are you currently unemployed and looking for a job?: No Are you interested in more education?: No Please select the resources that you would like help with: None Currently or been in a relationship where the following occur: No concerns reported THRIVE Score: 0 AUDIT C Alcohol Use Questionnaire (AUDIT-C) 1. How often do you have a drink containing alcohol?: Never Total Score: 0 Score Reviewed/Action Taken: No REYNALDO-7 AMB Questionnaire REYNALDO-7 Date REYNALDO - 7 assessed: 11/27/24 Feeling nervous, anxious, or on edge: 0 = Not at all Not being able to stop or control worryin = Not at all Worrying too much about different things: 0 = Not at all Trouble relaxin = Not at all Being so restless that it is hard to sit still: 0 = Not at all Becoming easily annoyed or irritable: 0 = Not at all Feeling afraid as if something awful might happen: 0 = Not at all Total REYNALDO-7 score (0-4 normal; 5-9 mild; 10-14 moderate; 15-21 severe): 0 Source: Developed by Drs. Rj Keen, Nubia Gallegos, Robert Reyna and colleagues, with an educational thuy from [employer]. REYNALDO-7 Assessment Billing REYNALDO-7 Assessment Tool: REYNALDO-7 Assessment 19861 Review of Systems Const All systems reviewed & are unremarkable except as noted in HPI and below Card Denies chest pain at rest, Denies chest pain with activity, Reports rapid heart rate, Denies edema, Denies irregular heart rhythm, Denies claudication, Denies dyspnea, Denies dyspnea on exertion, Denies orthopnea, Denies paroxysmal nocturnal dyspnea and Denies slow heart rate Resp Denies cough, Denies dyspnea and Denies dyspnea on exertion GI Denies abdominal pain, Denies change in bowel habits, Denies excessive flatus, Denies nausea and Denies vomiting Denies urinary hesitancy, Denies urinary incontinence and Denies urinary urgency Musc Denies abnormal gait, Denies atrophy, Denies deformity and Denies limited range of motion Skin/Breast Denies bleeding lesions, Denies changing lesions and Denies rash Neuro Denies abnormal gait and Denies lack of coordination Physical exam (Primary Care) Vital Signs: Last Vital Signs BP 110/76 11/27/24 09:50 BMI result Body Mass Index 24.0 Tobacco/Smoking Status: Tobacco use Status Tobacco use date assessed 11/27/24 11/27/24 09:58 Patient Tobacco Use Status Never used Tobacco 11/27/24 09:58 e-Cigarette/Vaping Use Never Used 11/27/24 09:58 PHQ-9: PHQ-9 Score PHQ-9: Total score 0 11/27/24 09:58 Depression Screening Interpretation: Negative Thrive Assessment: Date of Thrive Assessment Date Thrive assessed 11/27/24 11/27/24 09:58 Currently or been in a relationship where the following occur: No concerns reported Resp Effort & Inspection: normal respiratory effort Auscultation: clear to auscultation bilaterally Cardio Jugular venous distension: no JVD Rate: regular rate Rhythm: regular rhythm Heart sounds: S1 normal heart sound present and S2 normal heart sound present Extrem General: Yes full ROM Coding Level of Care Code Est Pt Level 4 (56584) Complex EM visit Add On G2211 Diagnoses Essential hypertension I10 Palpitations R00.2 Dyslipidemia E78.5 Hip pain M25.559 Additional Codes PHQ-9 - 22974 - PHQ-9 Billing: Yes ([id number]) REYNALDO-7 Assessment Billing - REYNALDO-7 Assessment Tool: REYNALDO-7 Assessment 50144 ([id number]) Time Spent (min) 21 Assessment & Plan Assessment & Plan (1) Essential hypertension: Code(s): I10 - Essential (primary) hypertension Category: Medical (2) Palpitations: Code(s): R00.2 - Palpitations Category: Medical (3) Dyslipidemia: Code(s): E78.5 - Hyperlipidemia, unspecified Category: Medical (4) Hip pain: Code(s): M25.559 - Pain in unspecified hip Category: Medical Plan I will have the patient take lisinopril twice daily to manage nocturnal h ypertension more effectively. The patient should limit the use of ibuprofen due to its potential impact on blood pressure levels. We will conduct a 48-hour Holter monitoring study to evaluate the patient's heart rhythm during nighttime palpitations, and he is encouraged to document any symptoms during this period. Additional lab work will be scheduled for May for ongoing hyperlipidemia monitoring. Dietary adjustments are advised for better blood pressure and cholesterol control. I will review the results of these interventions and the Holter test findings in a follow-up appointment to assess improvement. Patient was informed and verbally consented to the use of an ambient scribe for clinic note documentation during this visit. I had a thorough discussion with the patient about the concerns regarding episodic palpitations and elevated nocturnal blood pressure. The risks and benefits of adjusting lisinopril to a twice-daily dose were communicated, emphasizing how it might stabilize his blood pressure at night. We discussed the Holter monitoring process and its importance in detecting any abnormal heart rhythms that may occur during these episodes. I highlighted the significance of lifestyle factors, particularly limiting ibuprofen usage and dietary awareness, in managing hypertension and hyperlipidemia. Future lab tests and follow-ups have been planned to monitor his cardiovascular health comprehensively. Orders: Orders Comprehensive [place]. Panel Fast 6 Months R73.02 - Impaired glucose tolerance (oral) ECG holter monitor 48 hour Today R00.2 - Palpitations Lipid Panel 6 Months E78.5 - Hyperlipidemia, unspecified Medications: Changed From lisinopril 5 mg PO DAILY 90 days 90 tabs 1RF I10 - Essential (primary) hypertension To lisinopril 5 mg PO BID 90 days 180 tabs 1RF I10 - Essential (primary) hypertension Patient Instructions: - Take lisinopril twice daily as directed to manage blood pressure. - Limit or avoid using ibuprofen; discuss alternative pain management options if needed. - Participate in the 48-hour Holter monitoring study and keep a symptom diary. - Expect a follow-up lab test in May for cholesterol check. - Follow dietary recommendations as discussed to improve overall cardiovascular health. - Call if symptoms worsen or if new issues arise.
[2024-11-27 09:50] VITALS: BP 110/76; BMI 24.0
--- OUTSIDE RECORDS SUMMARY | 2024-11-27 10:27 | XMS_ITS | Clinical Summary ---
Author Organization [facility] Address [address] [place] [address] 7 [place] [address] Care Team Providers Care Advertiser Name Role Phone Unavailable Primary Care Provider Unavailabl e Allergies Active Allergy Reactions Criticality Noted Date Comments Oxycodone-Acetaminophen 08/20/2022 Desoxycorticosterone 08/20/2022 Medications lisinopril 5 MG tablet Take 5 mg by mouth Once per day. Active ibuprofen 800 MG tablet TAKE 1 TABLET (800 MG) ORALLY EVERY 8 HOURS NEEDED FOR PAIN FOR 30 DAYS Active rosuvastatin (Crestor) 20 MG tablet Oral for 90 Active Active Problems Problem Noted Date Diagnosed Date Diverticular disease of colon 09/07/2024 Constipation 09/07/2024 Colon cancer screening 09/07/2024 Dental abscess 06/15/2023 Periodontal disease 05/09/2023 Encounters Date Type Department Care Team Description 10/23/2024 8:45 AM EDT Office Visit [facility] [address] [place] [address] Chika Bolton 09/07/2024 9:00 AM EST Office Visit [facility] [address] [place] [address] Nagy-Mckenzie, Aurora, DDS Periodontal disease (Primary Dx); Encounter for dental examination; Open fracture of tooth, initial encounter 09/06/2024 Travel from Last 3 Months Immunizations Name Administration Dates Next Due Moderna Covid-19 Vaccine 12+ 07/14/2021 Moderna Covid-19 Vaccine 6+ Bivalent 07/30/2022 Pfizer Covid-19 Vaccine 12+ 11/25/2020, Social History Tobacco Use Types Packs/Day Years Used Date Smoking Tobacco: Never Passive Smoke Exposure: Never Smokeless Tobacco: Never Tobacco Cessation:Counseling Given: No Alcohol Use Standard Drinks/Week Comments Never 0 (1 standard drink = 0.6 oz pur e alcohol) Sex and Gender Information Value Date Recorded Sex Assigned at Male 05/17/2022 10:40 AM EDT Legal Sex Male 10:40 AM EDT Gender Identity Choose not to disclose 10:40 AM EDT Sexual Orientation Choose not to disclose 2021 10:40 AM EDT Last Filed Vital Signs Vital Sign Reading Time Taken Comments Blood Pressure 125/80 10/23/2024 9:00 AM EDT Pulse 79 10/23/2024 9:00 AM EDT Temperature - - Respiratory Rate - - Oxygen Saturation - - Inhaled Oxygen Concentration - - Weight - - Height - - Body Mass Index - - Plan of Treatment Upcoming Encounters Date Type Department Care Team (Late st Contact Info) Description 12/17/2024 8:00 AM EDT Office Visit [facility] [address] [place] [address] Aurora Gold, DDS [address] [place] [address] Health Maintenance Due Date Last Done Comments CT Colonography 1961 Colonoscopy 1961 Colorectal Cancer Screening 1961 Depression Screening 1961 FIT DNA/Cologuard 1961 FIT 1961 FOBT 1961 HIV Screening 1961 Lipid Panel 1961 SDOH Screening 1961 Sigmoidoscopy 1961 Alcohol/Substance Use Screening 1973 Hepatitis C Screening 1979 Zoster Vaccines (1 of 2) 2011 Dental Oral Exam 03/08/2025 09/07/2024 Dental Prophylaxis 04/25/2025 10/23/2024 Dental X-Ray: Bitewings 09/08/2025 09/07/2024 Tobacco Screening 10/23/2025 10/23/2024 DTaP/Tdap/Td Vaccines (2 - Td or Tdap) 04/28/2026 04/28/2016 Dental X-Ray: Full Mouth 09/08/2027 09/07/2024 RSV Patients and Patients Aged 60 years or older (1 - 1-dose 75+ series) 2036 Influenza Vaccine Completed 05/30/2024, , 03/18/2022, Additional history exists COVID-19 Vaccine Completed 07/04/2024, , 07/14/2021, Additional history exists Pneumococcal Vaccine: 50+ Years Completed 07/04/2024 HIB Vaccines Aged Out No longer eligi ble based on patient's age to complete this topic HPV Vaccines Aged Out No longer eligi ble based on patient's age to complete this topic Hepatitis A Vaccines Aged Out No long er eligible based on patient's age to complete this topic Hepatitis B Vaccines Aged Out No long er eligible based on patient's age to complete this topic IPV Vaccines Aged Out No longer eligi ble based on patient's age to complete this topic Meningococcal Vaccine Aged Out No holden pam eligible based on patient's age to complete this topic RSV under 20 months Aged Out No longe r eligible based on patient's age to complete this topic Rotavirus Vaccines Aged Out No longer eligible based on patient's age to complete this topic Procedures Procedure Name Priority Date/Time Associated Diagnosis Comments COMPREHENSIVE PERIODONTAL EVALUATION - NEW OR ESTABLISHED PATIENT Routine 10/23/2024 8:45 AM EDT NUTRITIONAL COUNSELING FOR CONTROL OF DENTAL DISEASE Routine 10/23/2024 8:45 AM EDT ORAL HYGIENE INSTRUCTIONS Routine 2024 8:45 AM EDT CASE PRESENTATION, DETAILED AND EXTENSIVE TREATMENT PLANNING Routine 10/23/2024 8:45 AM EDT PROPHYLAXIS - ADULT Routine 10/23/2024 8 :45 AM EDT CASE PRESENTATION, DETAILED AND EXTENSIVE TREATMENT PLANNING Routine 09/07/2024 9:00 AM EST Periodontal disease Encounter for dental examination Open fracture of tooth, initial encounter INTRAORAL - COMPLETE SERIES OF RADIOGRAPHIC IMAGES Routine 09/07/2024 9:00 AM EST Periodontal disease Encounter for dental examination Open fracture of tooth, initial encounter COMPREHENSIVE ORAL EVALUATION - NEW OR ESTABLISHED PATIENT Routine 09/07/2024 9:00 AM EST Periodontal disease Encounter for dental examination Open fracture of tooth, initial encounter 3 B(V) COMPOSITE FILLING Routine 025 12:00 AM EST 14 BB(V) COMPOSITE FILLING Routine 09/07/2024 12:00 AM EST 13 B COMPOSITE FILLING Routine 5 12:00 AM EST 4 B(V) COMPOSITE FILLING Routine 025 12:00 AM EST 20 B COMPOSITE FILLING Routine 12:00 AM EST 20 O AMALGAM FILLING Routine 09/07/2024 12:00 AM EST 14 RUFUS AMALGAM FILLING Routine 09/07/2024 12:00 AM EST 13 O AMALGAM FILLING Routine 09/07/2024 12:00 AM EST 3 O AMALGAM FILLING Routine 09/07/2024 1 2:00 AM EST 28 O AMALGAM FILLING Routine 09/07/2024 12:00 AM EST 29 O AMALGAM FILLING Routine 09/07/2024 12:00 AM EST 31 O AMALGAM FILLING Routine 09/07/2024 12:00 AM EST from Last 3 Months Insurance [facility]
--- OUTSIDE RECORDS SUMMARY | 2024-11-27 10:27 | XMS_ITS | Patient Health Record ---
Author Organization [facility] Address [address] [place] [address] Care Team Providers Care Assistant Guest Services Manager Name Role Phone Enedina Abdi Primary Care Provider Rj Flores Unavailable [phone] Allergies Allergen (clinical drug ingredient) Drug/Non Drug Allergy documented on EMR Reaction Allergy Type Onset Date Status acetaminophen / oxycodone Percocet Unknown Drug Allergy Active Reason For Referral No Information Medications Medication SIG (Take, Route, Frequency, Duration) Notes Start Date End Date Status Rosuvastatin Calcium 20 MG Oral for 90 Active Lisinopril 5 MG Oral for 90 Ac tive Dulcolax (colon prep) 5 MG take at 3:00 p.m and 7:00p.m. Orally two tablets twice a day for one day for 1 day Please put instructions in Azerbaijani. Thanks 09/07/2022 Active Metamucil 0.36 GM 2 with at least 8 ounces of water orally Once or twice a day for constipation for 30 days Please put instructions in [place]ijani. Thanks 09/07/2022 Active MiraLax (colon prep) 17 GM/SCOOP 1 238 Gm bottle mixed with Gatorade or Crystal Light Orally begin at 5:00 p.m. the day before the procedure for 1 day Please put instructions in [place]ijani. Thanks 09/07/2022 Active MiraLax 17 GM 1 packet mixed with 8 ounces of fluid Orally Once or twice a day for constipation for 30 day(s) Please put instructions in [place]ij[place]. Thanks 09/07/2022 Active Motrin Active Immunizations Vaccine Route Administration Date Status Comme nts Influenza Unknown 03/18/2022 Administered Social History Tobacco Use: Social History Observation Description Date Details (start date - stop date) Never Smoker NA - NA Tobacco Use/Smoking Question Answer Notes Patient is a nonsmoker Alcohol Screen Question Answer Notes Did you have a drink containing alcohol in the p ast year? No Points 0 Interpretation Negative Section Notes: No sig alcohol, nonsmoker Problems Problem Type SNOMED Code ICD Code Onset Dates Problem Status W/U Status Risk Notes Problem 122721028 Colon cancer screening (Z12.11) Active confirmed Problem Diverticular disease of colon (679046798) Diverticulosis of large intestine without perforation or abscess without bleeding (K57.30) Active confirmed Problem 27439702 Constipation, unspecified constipation type (K59.00) Active confirmed Plan Of Treatment Future Test Test Name Order Date COLONOSCOPY 09/07/2022 Insurance Providers Payer Name Payer Address Payer Phone Subscriber Number Group Number Insured Name Patient Relationship to Insured Coverage Start Date Coverage End Date [facility] [address] [place] [address] [id number] YESSICA PIEDRA Self - patient is the insured MEDICARE OF [place] [address] [place] [address] [id number] YESSICA PIEDRA Self - patient is the insured Medical (General) History Medical History History ICD Code Hypertension Hypercholesterolemia Reports a negative colonoscopy in [place] at age 51 Denies [place],DM,CVA,Lung disease,renal dise ase [place]illian-[place] in 2003 Surgical History Surgery Date(Month/Year) Right hip replacement 2014 [facility]
== END 2024-11-27 10:20 | disposition home or self-care (01) ==
LOC: HO.HMCH 09:45
PROVIDERS: PCP Internal Medicine; Visit Provider Internal Medicine
DX: I10 Essential (primary) hypertension (principal); R00.2 Palpitations; E78.5 Hyperlipidemia, unspecified; M25.559 Pain in unspecified hip

== ENCOUNTER → 2024-11-27 09:45 | Outpatient (BNVA) | payer OTHER, SELFPAY | PROVIDERS: PCP Internal Medicine; Visit Provider Internal Medicine | DX: I10 Essential (primary) hypertension (principal); R00.2 Palpitations; E78.5 Hyperlipidemia, unspecified; M25.559 Pain in unspecified hip | CPT/HCPCS: 96127; 99212 ==

== ENCOUNTER → 2024-12-18 09:22 | Outpatient (REF) | payer OTHER, SELFPAY ==
--- OUTSIDE RECORDS SUMMARY | 2024-12-18 10:22 | XMS_ITS | Patient Health Record ---
Author Organization [facility] Address [address] [place] [address] Care Team Providers Care Tray Setter Name Role Phone Enedina Abdi Primary Care Provider Rj Flores Unavailable [phone] Allergies Allergen (clinical drug ingredient) Drug/Non Drug [...] for 1 day Please put instructions in Polish. Thanks 09/07/2022 Active Metamucil 0.36 GM 2 with at least 8 ounces of water orally Once or twice a day for constipation for 30 days Please put instructions in Polish. Thanks 09/07/2022 Active MiraLax (colon prep) 17 GM/SCOOP 1 238 Gm bottle mixed with Gatorade or Crystal Light Orally begin at 5:00 p.m. the day before the procedure for 1 day Please put instructions in Polish. Thanks 09/07/2022 Active MiraLax 17 GM 1 packet mixed with 8 ounces of fluid Orally Once or twice a day for constipation for 30 day(s) Please put instructions in Polish. Thanks 09/07/2022 Active Motrin Active Immunizations Vaccine [...] Problem Status W/U Status Risk Notes Problem 720665037 Colon cancer screening (Z12.11) Active confirmed Problem Diverticular disease of colon (050469409) Diverticulosis of large intestine without perforation or abscess without bleeding (K57.30) Active confirmed Problem 56383018 Constipation, unspecified constipation type (K59.00) Active confirmed Plan Of Treatment Future Test Test Name Order Date COLONOSCOPY 09/07/2022 Insurance Providers Payer Name Payer Address Payer Phone Subscriber Number Group Number Insured Name Patient Relationship to Insured Coverage Start Date Coverage End Date [facility] [address] [place] [address] [id number] YESSICA PIEDRA Self - patient is the insured MEDICARE OF [place] [address] [place] [address] [id number] YESSICA PIEDRA Self - patient is the insured Medical (General) History Medical History History ICD Code Hypertension Hypercholesterolemia Reports a negative colonoscopy in [place] at age 51 Denies [place],DM,CVA,Lung disease,renal dise ase [place] in 2003 Surgical History Surgery Date(Month/Year) Right hip replacement 2014 [facility]
== END ==
LOC: HO.CARD 09:22
PROVIDERS: Visit Provider Internal Medicine
DX: R00.2 Palpitations (principal)
CPT/HCPCS: 93225